=== PATIENT | female | born 1955 | race Caucasian/White ===

== ENCOUNTER 2018-06-14 13:04 | Outpatient (CLI) | payer MEDICAID ==
[~2018-06-14 13:04] MED LIST: FURO-150 PO; IRON; MULT-38 PO; PANT-47 PO; SPIR100T5 PO
== END 2018-06-14 23:59 | disposition home or self-care (01) ==
LOC: RAD 13:04 → NM 23:59
PROVIDERS: ATTEND Surgery
DX: K91.89 Other postprocedural complications and disorders of digestive system (principal); Z90.49 Acquired absence of other specified parts of digestive tract; Z90.710 Acquired absence of both cervix and uterus; Z72.89 Other problems related to lifestyle; Z79.899 Other long term (current) drug therapy
CPT/HCPCS: 78226; A9537

== ENCOUNTER 2018-06-20 01:32 | Inpatient (IN) | payer MEDICAID ==
[~2018-06-20] VITALS: Ht 165.1 cm; Wt 78.0 kg
[2018-06-20 02:18] LABS: BASOPHILS % (AUTO) 0.6 % (0-1); EOSINOPHILS # (AUTO) 0.1 X10'3 (0-0.9); EOSINOPHILS % (AUTO) 2.3 % (0-6); HEMATOCRIT 31.3 % (35.0-45.0); LYMPHOCYTES # (AUTO) 0.5 X10'3 (1.1-4.8); LYMPHOCYTES % (AUTO) 8.4 % (21-51); MEAN CORPUSCULAR HEMOGLOBIN 33.3 PG (27.0-31.0); MEAN CORPUSCULAR HGB CONC 35.2 g/dL (33.0-36.5); MEAN CORPUSCULAR VOLUME 94.9 FL (78-98); MEAN PLATELET VOLUME 7.8 FL (7.4-10.4); MONOCYTES # (AUTO) 1.1 X10'3 (0-0.9); MONOCYTES % (AUTO) 18.2 % (2-12); NEUTROPHILS # (AUTO) 4.3 X10'3 (1.8-7.7); NEUTROPHILS % (AUTO) 70.5 % (42-75); PLATELET COUNT 160 X10'3 (140-440); RED CELL DISTRIBUTION WIDTH 14.6 % (11.5-14.5); WHITE BLOOD COUNT 6.1 X10'3 (4.5-11.0)
[2018-06-20 02:31] LABS: ALANINE AMINOTRANSFERASE 33 U/L (12-78); ALBUMIN 2.6 G/DL (3.4-5.0); ALBUMIN/GLOBULIN RATIO 0.7 (1.1-1.5); ALKALINE PHOSPHATASE 245 IU/L (46-116); ANION GAP 7 (8-16); ASPARTATE AMINO TRANSFERASE 15 U/L (10-37); BILIRUBIN,TOTAL 1.9 MG/DL (0.1-1.0); BLOOD UREA NITROGEN 17 MG/DL (7-18); CALCIUM 8.5 MG/DL (8.5-10.1); CHLORIDE 98 MMOL/L (99-107); CREATININE 0.74 MG/DL (0.40-0.90); GLUCOSE 104 MG/DL (70-104); INR 1.2 INR; POTASSIUM 4.1 MMOL/L (3.5-5.1); SODIUM 131 MMOL/L (135-145); TOTAL CARBON DIOXIDE 26.5 MMOL/L (24-32); TOTAL PROTEIN 6.1 G/DL (6.4-8.2); eGFR 79 ML/MIN
[2018-06-20 02:32] LABS: PARTIAL THROMBOPLASTIN TIME 28 SECONDS (22-32)
[2018-06-20] MEDS ORDERED: potassium Cl 40MEQ/NS 500ml 500 ML IV PRN ×2 (05:50)
[2018-06-20] MEDS ORDERED: HYDROcodone/acetaminophen 5mg/325mg tablet PO PRN (05:50)
[2018-06-20] MEDS ORDERED: magnesium hydroxide 30ml (MOM) UD suspension PO PRN (05:50)
[2018-06-20] MEDS ORDERED: magnesium 2GM in 50ml NS 50 ML IV PRN (05:50)
[2018-06-20] MEDS ORDERED: potassium Cl 20 mEq SR tablet PO PRN ×2 (05:50)
[2018-06-20] MEDS ORDERED: magnesium Cl slow-release 64mg tablet PO PRN (05:50)
[2018-06-20] MEDS ORDERED: ondansetron/PF 4mg/2ml inj IV PRN (05:50)
[2018-06-20] MEDS ORDERED: magnesium 4gm in 100ml NS 100 ML IV PRN (05:50)
[2018-06-20] MEDS ORDERED: acetaminophen 325mg tablet PO PRN ×2 (05:50)
[2018-06-20] MEDS ORDERED: mag hydrox/Alum hydrox/simeth 30ml oral suspension PO PRN (05:50)
[2018-06-20 06:43] LABS: CLARITY,URINE CLEAR (Clear); COLOR,URINE YELLOW (Yellow); GLUCOSE, URINE NEGATIVE (Neg); KETONES,URINE NEGATIVE (Neg); LEUKOCYTE ESTERASE ,URINE NEGATIVE (Neg); NITRITES, URINE NEGATIVE (Neg); OCCULT BLOOD,URINE NEGATIVE (Neg); PROTEIN,URINE NEGATIVE (Neg)
[2018-06-20 06:44] LABS: UA COLLECTION TYPE VOIDED
[2018-06-20] MEDS: K and/or MAG REPLACEMENT MC SCH (08:00)
[2018-06-20] MEDS ORDERED: piperacillin/tazo 4.5gm/100ml 100 ML IV SCH (08:00)
[2018-06-20] MEDS: multivitamins, therapeutics tablet PO SCH (08:01)
[2018-06-20] MEDS: furosemide 20MG tablet PO SCH (08:01)
[2018-06-20] MEDS: pantoprazole 40mg Tablet.DR PO SCH (08:01)
[2018-06-20] MEDS: enoxaparin 40mg/0.4ml syringe SUBCUT SCH (08:01)
[2018-06-20] MEDS: normal saline 1000ml 1,000 ML IV SCH ×2 (08:07→15:47)
[2018-06-20] MEDS: HYDROmorphone inj. 0.5 MG/0.5 ML DISP.SYRIN IV PRN (08:53)
[2018-06-20] MEDS: spironolactone 25 MG tablet PO SCH ×2 (08:53→20:00)
[2018-06-20] MEDS ORDERED: midazolam 2 mg/2 ml injection IV PRN (11:05)
[2018-06-20] MEDS ORDERED: normal saline 1000ml 1,000 ML IV SCH (11:05)
[2018-06-20] MEDS ORDERED: LIDOcaine 1%/PF 5ML 10 MG/ML VIAL SQ ONE (11:05)
[2018-06-20] MEDS ORDERED: fentaNYL/PF 50MCG/1 ML 2ML syringe IV PRN (11:05)
[2018-06-20] MEDS ORDERED: midazolam 2 mg/2 ml injection ONE (11:08)
[2018-06-20] MEDS ORDERED: LIDOcaine 1%/PF 5ML 10 MG/ML VIAL ONE (11:08)
[2018-06-20] MEDS ORDERED: fentaNYL/PF 50MCG/1 ML 2ML syringe ONE ×2 (11:08→11:57)
[2018-06-20 11:30] VITALS: BP 102/53
[2018-06-20 11:41] VITALS: BP 95/46
[2018-06-20 11:46] VITALS: BP 96/49
[2018-06-20 11:51] VITALS: BP 99/57
[2018-06-20 11:59] VITALS: BP 100/52
[2018-06-20 13:58] LABS: BF RBC COUNT 3370 /CU MM; BF WBC COUNT 275 /CU MM (0-1000); BFAPPEAR HAZY; BFCOLOR YELLOW; BFVOLUME 57 ML
[2018-06-20 14:03] LABS: LYMPHOCYTES,BODY FLUID 22 %; NEUTROPHILS,BODY FLUID 41 %
[2018-06-20 14:04] LABS: BF MESOTHELIAL CELLS MODERATE; MONOCYTES,BODY FLUID 37 %
[2018-06-20] MEDS: HYDROmorphone 1 mg/ml syringe IV PRN ×3 (14:29→22:49)
[2018-06-20] MEDS: piperacillin/tazo 3.375gm/50ml 50 ML IV SCH (16:24)
--- NOTE | 2018-06-20 17:47 | NUR ---
ESTEFANI TORRES TO CALL BACK TO RECEIVE REPORT.
--- NOTE | 2018-06-20 18:36 | NUR ---
IPA 344 B, PT WITH STABLE VS AND IS POLEASANT AND COOPERATIVE. DR. EZIO VAUGHN FOR UPDATE ON PT. JUST GIVEN DIALUDID FOR PAIN TO RIGHT ABD/INCISION SITE OF 7 OUT OF 10.
[2018-06-20 19:10] VITALS: BP 110/59
--- NOTE | 2018-06-20 19:10 | NUR ---
PATIENT ADMITTED TO ROOM 344B FROM ER FOR SEPSIS POST LA BUNNY 10 DAYS AGO. PLACED COMFORTABLE IN BED. VITAL SIGNS TAKEN AND RECORDED.
[2018-06-20] MEDS ORDERED: temazepam 15mg capsule PO PRN (21:00)
[2018-06-20] MEDS: lactobacillus rhamnosus 10,000 MMU CELLS/CAPSULE PO SCH (21:15)
[2018-06-21] VITALS: BP 97/55
[2018-06-21] MEDS: HYDROcodone/acetaminophen 10/325mg tab PO PRN ×2 (00:39→16:27)
[2018-06-21] MEDS: piperacillin/tazo 3.375gm/50ml 50 ML IV SCH ×3 (00:52→16:18)
[2018-06-21] MEDS: HYDROmorphone 1 mg/ml syringe IV PRN ×4 (03:24→20:02)
[2018-06-21 05:40] LABS: ALANINE AMINOTRANSFERASE 34 U/L (12-78); ALBUMIN 2.7 G/DL (3.4-5.0); ALBUMIN/GLOBULIN RATIO 0.8 (1.1-1.5); ALKALINE PHOSPHATASE 240 IU/L (46-116); ANION GAP 5 (8-16); ASPARTATE AMINO TRANSFERASE 16 U/L (10-37); BILIRUBIN,TOTAL 3.1 MG/DL (0.1-1.0); BLOOD UREA NITROGEN 10 MG/DL (7-18); BUN/CREATININE RATIO 12.7 (6.6-38.0); CALCIUM 8.5 MG/DL (8.5-10.1); CHLORIDE 98 MMOL/L (99-107); CREATININE 0.79 MG/DL (0.40-0.90); GLUCOSE 90 MG/DL (70-104); MAGNESIUM 1.7 MG/DL (1.5-2.4); PHOSPHORUS 2.9 MG/DL (2.3-4.5); POTASSIUM 3.9 MMOL/L (3.5-5.1); SODIUM 130 MMOL/L (135-145); TOTAL CARBON DIOXIDE 27.2 MMOL/L (24-32); TOTAL PROTEIN 6.2 G/DL (6.4-8.2); eGFR 74 ML/MIN
[2018-06-21 05:45] LABS: BASOPHILS % (AUTO) 0.5 % (0-1); EOSINOPHILS # (AUTO) 0.1 X10'3 (0-0.9); EOSINOPHILS % (AUTO) 1.5 % (0-6); HEMATOCRIT 34.4 % (35.0-45.0); HEMOGLOBIN 11.8 g/dl (12.0-16.0); LYMPHOCYTES % (AUTO) 12.3 % (21-51); MEAN CORPUSCULAR HEMOGLOBIN 33.1 PG (27.0-31.0); MEAN CORPUSCULAR HGB CONC 34.2 g/dL (33.0-36.5); MEAN CORPUSCULAR VOLUME 96.6 FL (78-98); MONOCYTES # (AUTO) 1.3 X10'3 (0-0.9); MONOCYTES % (AUTO) 15.7 % (2-12); NEUTROPHILS # (AUTO) 5.7 X10'3 (1.8-7.7); PLATELET COUNT 194 X10'3 (140-440); RED BLOOD COUNT 3.56 X10'6 (4.20-5.60); RED CELL DISTRIBUTION WIDTH 14.8 % (11.5-14.5); WHITE BLOOD COUNT 8.2 X10'3 (4.5-11.0)
--- NOTE | 2018-06-21 06:39 | NUR ---
Problems reprioritized. Patient report given, questions answered & plan of care reviewed with LENORE TORRES.
[2018-06-21 07:13] VITALS: BP 128/58
[2018-06-21] MEDS: spironolactone 25 MG tablet PO SCH ×2 (07:57→21:04)
[2018-06-21] MEDS: pantoprazole 40mg Tablet.DR PO SCH (07:58)
[2018-06-21] MEDS: multivitamins, therapeutics tablet PO SCH (07:58)
[2018-06-21] MEDS: lactobacillus rhamnosus 10,000 MMU CELLS/CAPSULE PO SCH ×2 (07:58→21:04)
[2018-06-21] MEDS: docusate sod 100mg capsule PO SCH ×2 (07:58→21:04)
[2018-06-21] MEDS: furosemide 20MG tablet PO SCH (07:58)
[2018-06-21] MEDS: K and/or MAG REPLACEMENT MC SCH (08:00)
[2018-06-21] MEDS: enoxaparin 40mg/0.4ml syringe SUBCUT SCH (08:01)
[2018-06-21 12:00] VITALS: BP 113/62
--- NOTE | 2018-06-21 13:54 | NUR ---
PAGER ID: [phone] MESSAGE: [phone] Marlene Velez JUST TO VERIFY... WHAT DIET DID YOU WANT THIS PT ON? SHE IS STILL ON CL [place]. tHANK YOU LENORE [id number]
--- NOTE | 2018-06-21 15:54 | NUR ---
PAGER ID: [phone] MESSAGE: [phone] Marlene GONZALES ASCITES RETURNING, ABD IS LARGE DISTENDED AND WARM TO TOUCH. LENORE TORRES [facility]
--- NOTE | 2018-06-21 19:09 | NUR ---
Pt. in room resting comfortably, no needs at this time. Gave report to Melvi purclel RN.
--- NOTE | 2018-06-21 19:10 | NUR ---
Patient in room KIP 344. I have received report from LENORE TORRES and had the opportunity to ask questions and assume patient care.
[2018-06-21 20:00] VITALS: BP 103/53
[2018-06-22] VITALS (14 sets, daily range): BP systolic 97–123; BP diastolic 50–76
[2018-06-22] MEDS: piperacillin/tazo 3.375gm/50ml 50 ML IV SCH ×4 (00:23→23:36)
[2018-06-22] MEDS: HYDROmorphone 1 mg/ml syringe IV PRN ×5 (00:26→20:49)
[2018-06-22 04:45] LABS: BASOPHILS % (AUTO) 0.3 % (0-1); EOSINOPHILS # (AUTO) 0.1 X10'3 (0-0.9); EOSINOPHILS % (AUTO) 1.5 % (0-6); HEMATOCRIT 29.6 % (35.0-45.0); HEMOGLOBIN 10.3 g/dl (12.0-16.0); LYMPHOCYTES # (AUTO) 0.5 X10'3 (1.1-4.8); LYMPHOCYTES % (AUTO) 7.9 % (21-51); MEAN CORPUSCULAR HEMOGLOBIN 33.5 PG (27.0-31.0); MEAN CORPUSCULAR HGB CONC 34.8 g/dL (33.0-36.5); MEAN CORPUSCULAR VOLUME 96.1 FL (78-98); MEAN PLATELET VOLUME 7.5 FL (7.4-10.4); MONOCYTES # (AUTO) 0.9 X10'3 (0-0.9); MONOCYTES % (AUTO) 14.1 % (2-12); NEUTROPHILS % (AUTO) 76.2 % (42-75); PLATELET COUNT 161 X10'3 (140-440); RED BLOOD COUNT 3.08 X10'6 (4.20-5.60); RED CELL DISTRIBUTION WIDTH 14.8 % (11.5-14.5); WHITE BLOOD COUNT 6.5 X10'3 (4.5-11.0)
[2018-06-22 05:03] LABS: ALANINE AMINOTRANSFERASE 29 U/L (12-78); ALBUMIN 2.4 G/DL (3.4-5.0); ALBUMIN/GLOBULIN RATIO 0.7 (1.1-1.5); ALKALINE PHOSPHATASE 210 IU/L (46-116); ANION GAP 3 (8-16); ASPARTATE AMINO TRANSFERASE 14 U/L (10-37); BILIRUBIN,TOTAL 3.2 MG/DL (0.1-1.0); BLOOD UREA NITROGEN 9 MG/DL (7-18); BUN/CREATININE RATIO 10.2 (6.6-38.0); CALCIUM 8.2 MG/DL (8.5-10.1); CHLORIDE 98 MMOL/L (99-107); CREATININE 0.88 MG/DL (0.40-0.90); GLUCOSE 101 MG/DL (70-104); LIPASE 144 U/L (73-393); MAGNESIUM 1.7 MG/DL (1.5-2.4); PHOSPHORUS 2.6 MG/DL (2.3-4.5); POTASSIUM 3.6 MMOL/L (3.5-5.1); SODIUM 129 MMOL/L (135-145); TOTAL PROTEIN 5.8 G/DL (6.4-8.2); eGFR 65 ML/MIN
--- NOTE | 2018-06-22 06:30 | NUR ---
Problems reprioritized. Patient report given, questions answered & plan of care reviewed with BEN TORRES.
--- NOTE | 2018-06-22 06:30 | NUR ---
Patient in room KIP 344. I have received report from Melvi Ogden RN and had the opportunity to ask questions and assume patient care. Patient resting comfortably at this time. Call light and items of frequent use in reach of patient.
[2018-06-22] MEDS ORDERED: MIDAZolam 5mg/5ml vial ONE (06:34)
[2018-06-22] MEDS ORDERED: diphenhydrAMINE 50 mg/ml inj ONE (06:34)
[2018-06-22] MEDS ORDERED: fentaNYL/PF 50MCG/1 ML 2ML syringe ONE (06:34)
[2018-06-22] MEDS ORDERED: iohexol 300 MG/1 ML 50ml polymer ONE (06:34)
[2018-06-22] MEDS ORDERED: LIDOcaine Viscous 15ml cup ONE (06:34)
[2018-06-22] MEDS ORDERED: glucagon, human recombinant 1mg kit ONE (06:34)
--- NOTE | 2018-06-22 06:47 | NUR ---
Patient to ERCP via wheelchair with x1 staff. Patient alert and oriented and in no apparent distress at this time.
[2018-06-22] MEDS: K and/or MAG REPLACEMENT MC SCH (08:00)
[2018-06-22] MEDS: spironolactone 25 MG tablet PO SCH ×2 (11:17→20:45)
[2018-06-22] MEDS: multivitamins, therapeutics tablet PO SCH (11:18)
[2018-06-22] MEDS: lactobacillus rhamnosus 10,000 MMU CELLS/CAPSULE PO SCH ×2 (11:18→20:45)
[2018-06-22] MEDS: docusate sod 100mg capsule PO SCH ×2 (11:18→20:45)
[2018-06-22] MEDS: pantoprazole 40mg Tablet.DR PO SCH (11:18)
[2018-06-22] MEDS: furosemide 20MG tablet PO SCH (11:18)
--- NOTE | 2018-06-22 18:31 | NUR ---
Problems reprioritized. Patient report given, questions answered & plan of care reviewed with Melvi Ogden RN.
--- NOTE | 2018-06-22 18:35 | NUR ---
Patient in room KIP 344. I have received report from BEN TORRES and had the opportunity to ask questions and assume patient care.
[2018-06-23] VITALS: BP 118/43
[2018-06-23] MEDS: HYDROmorphone 1 mg/ml syringe IV PRN ×4 (01:53→21:52)
[2018-06-23 05:12] LABS: BASOPHILS % (AUTO) 0.2 % (0-1); EOSINOPHILS # (AUTO) 0.1 X10'3 (0-0.9); EOSINOPHILS % (AUTO) 1.2 % (0-6); HEMATOCRIT 27.7 % (35.0-45.0); HEMOGLOBIN 9.6 g/dl (12.0-16.0); LYMPHOCYTES # (AUTO) 0.5 X10'3 (1.1-4.8); LYMPHOCYTES % (AUTO) 7.2 % (21-51); MEAN CORPUSCULAR HEMOGLOBIN 33.6 PG (27.0-31.0); MEAN CORPUSCULAR HGB CONC 34.7 g/dL (33.0-36.5); MEAN CORPUSCULAR VOLUME 96.9 FL (78-98); MEAN PLATELET VOLUME 7.5 FL (7.4-10.4); MONOCYTES # (AUTO) 0.9 X10'3 (0-0.9); MONOCYTES % (AUTO) 13.4 % (2-12); PLATELET COUNT 168 X10'3 (140-440); RED BLOOD COUNT 2.86 X10'6 (4.20-5.60); WHITE BLOOD COUNT 6.4 X10'3 (4.5-11.0)
[2018-06-23 05:30] LABS: ALANINE AMINOTRANSFERASE 27 U/L (12-78); ALBUMIN 2.2 G/DL (3.4-5.0); ALBUMIN/GLOBULIN RATIO 0.7 (1.1-1.5); ALKALINE PHOSPHATASE 190 IU/L (46-116); ANION GAP 8 (8-16); ASPARTATE AMINO TRANSFERASE 13 U/L (10-37); BILIRUBIN,TOTAL 2.3 MG/DL (0.1-1.0); BLOOD UREA NITROGEN 7 MG/DL (7-18); BUN/CREATININE RATIO 8.1 (6.6-38.0); CALCIUM 8.4 MG/DL (8.5-10.1); CHLORIDE 98 MMOL/L (99-107); CREATININE 0.86 MG/DL (0.40-0.90); GLUCOSE 109 MG/DL (70-104); LIPASE 177 U/L (73-393); MAGNESIUM 1.6 MG/DL (1.5-2.4); PHOSPHORUS 2.2 MG/DL (2.3-4.5); POTASSIUM 3.5 MMOL/L (3.5-5.1); SODIUM 131 MMOL/L (135-145); TOTAL CARBON DIOXIDE 25.1 MMOL/L (24-32); TOTAL PROTEIN 5.4 G/DL (6.4-8.2); eGFR 67 ML/MIN
--- NOTE | 2018-06-23 06:25 | NUR ---
Patient in room KIP 344. I have received report from Melvi Ogden RN and had the opportunity to ask questions and assume patient care.
[2018-06-23 07:11] VITALS: BP 101/50
[2018-06-23] MEDS: K and/or MAG REPLACEMENT MC SCH (07:28)
[2018-06-23] MEDS: piperacillin/tazo 3.375gm/50ml 50 ML IV SCH ×2 (07:39→16:40)
[2018-06-23] MEDS: spironolactone 25 MG tablet PO SCH ×2 (07:42→20:33)
[2018-06-23] MEDS: docusate sod 100mg capsule PO SCH ×2 (07:43→20:33)
[2018-06-23] MEDS: pantoprazole 40mg Tablet.DR PO SCH (07:44)
[2018-06-23] MEDS: lactobacillus rhamnosus 10,000 MMU CELLS/CAPSULE PO SCH ×2 (07:44→20:33)
[2018-06-23] MEDS: multivitamins, therapeutics tablet PO SCH (07:44)
[2018-06-23] MEDS: furosemide 20MG tablet PO SCH (07:44)
[2018-06-23 11:38] VITALS: BP_SYST 108; BP_SYST 94; BP_DIAS 50
--- NOTE | 2018-06-23 18:34 | NUR ---
Problems reprioritized. Patient report given, questions answered & plan of care reviewed with Melvi Ogden RN. Patient resting comfortably at this time. Call light and items of frequent use in reach of patient.
--- NOTE | 2018-06-23 18:35 | NUR ---
Patient in room KIP 344. I have received report from BEN TORRES and had the opportunity to ask questions and assume patient care.
[2018-06-23 20:00] VITALS: BP 113/55
[2018-06-24] VITALS: BP 104/53
[2018-06-24] MEDS: piperacillin/tazo 3.375gm/50ml 50 ML IV SCH ×4 (00:13→23:07)
[2018-06-24] MEDS: HYDROmorphone 1 mg/ml syringe IV PRN ×4 (03:48→23:08)
[2018-06-24 04:34] LABS: BASOPHILS % (AUTO) 0.2 % (0-1); EOSINOPHILS # (AUTO) 0.1 X10'3 (0-0.9); EOSINOPHILS % (AUTO) 1.2 % (0-6); HEMATOCRIT 27.8 % (35.0-45.0); HEMOGLOBIN 9.7 g/dl (12.0-16.0); LYMPHOCYTES # (AUTO) 0.4 X10'3 (1.1-4.8); LYMPHOCYTES % (AUTO) 7.4 % (21-51); MEAN CORPUSCULAR HEMOGLOBIN 33.2 PG (27.0-31.0); MEAN CORPUSCULAR HGB CONC 34.9 g/dL (33.0-36.5); MEAN CORPUSCULAR VOLUME 95.2 FL (78-98); MEAN PLATELET VOLUME 7.5 FL (7.4-10.4); MONOCYTES # (AUTO) 0.9 X10'3 (0-0.9); MONOCYTES % (AUTO) 15.6 % (2-12); NEUTROPHILS # (AUTO) 4.2 X10'3 (1.8-7.7); NEUTROPHILS % (AUTO) 75.6 % (42-75); PLATELET COUNT 154 X10'3 (140-440); RED BLOOD COUNT 2.92 X10'6 (4.20-5.60); RED CELL DISTRIBUTION WIDTH 14.5 % (11.5-14.5); WHITE BLOOD COUNT 5.6 X10'3 (4.5-11.0)
[2018-06-24 04:50] LABS: ALANINE AMINOTRANSFERASE 27 U/L (12-78); ALBUMIN 2.2 G/DL (3.4-5.0); ALBUMIN/GLOBULIN RATIO 0.7 (1.1-1.5); ALKALINE PHOSPHATASE 179 IU/L (46-116); ANION GAP 3 (8-16); ASPARTATE AMINO TRANSFERASE 13 U/L (10-37); BILIRUBIN,TOTAL 1.9 MG/DL (0.1-1.0); BLOOD UREA NITROGEN 8 MG/DL (7-18); BUN/CREATININE RATIO 10.1 (6.6-38.0); CALCIUM 8.5 MG/DL (8.5-10.1); CHLORIDE 97 MMOL/L (99-107); CREATININE 0.79 MG/DL (0.40-0.90); GLUCOSE 100 MG/DL (70-104); LIPASE 197 U/L (73-393); MAGNESIUM 1.6 MG/DL (1.5-2.4); PHOSPHORUS 2.2 MG/DL (2.3-4.5); POTASSIUM 3.8 MMOL/L (3.5-5.1); SODIUM 128 MMOL/L (135-145); TOTAL CARBON DIOXIDE 27.7 MMOL/L (24-32); TOTAL PROTEIN 5.4 G/DL (6.4-8.2); eGFR 74 ML/MIN
--- NOTE | 2018-06-24 06:15 | NUR ---
Problems reprioritized. Patient report given, questions answered & plan of care reviewed with BEN TORRES.
--- NOTE | 2018-06-24 06:24 | NUR ---
Patient in room KIP 350. I have received report from Melvi Ogden RN and had the opportunity to ask questions and assume patient care. Patient resting comfortably at this time. Call light and items of frequent use in reach of patient at this time.
[2018-06-24] MEDS: K and/or MAG REPLACEMENT MC SCH (07:07)
[2018-06-24] MEDS: spironolactone 25 MG tablet PO SCH ×2 (07:14→20:01)
[2018-06-24] MEDS: docusate sod 100mg capsule PO SCH ×2 (07:14→20:00)
[2018-06-24] MEDS: lactobacillus rhamnosus 10,000 MMU CELLS/CAPSULE PO SCH ×2 (07:14→20:00)
[2018-06-24] MEDS: furosemide 20MG tablet PO SCH (07:15)
[2018-06-24] MEDS: pantoprazole 40mg Tablet.DR PO SCH (07:15)
[2018-06-24] MEDS: multivitamins, therapeutics tablet PO SCH (07:15)
[2018-06-24 07:41] VITALS: BP 108/64
[2018-06-24 12:00] VITALS: BP 99/54
[2018-06-24] MEDS: HYDROcodone/acetaminophen 10/325mg tab PO PRN (14:54)
[2018-06-24 17:04] LABS: OCCULT BLOOD STOOL POSITIVE (Neg)
--- NOTE | 2018-06-24 18:12 | NUR ---
Received report from BRIAN Rogers. Patient is awake and alert on room air, in no apparent distress. Call light and items of frequent use within reach. Will continue to monitor.
--- NOTE | 2018-06-24 18:16 | NUR ---
Problems reprioritized. Patient report given, questions answered & plan of care reviewed with BRIAN Iyer.
[2018-06-24 20:00] VITALS: BP 102/53
[2018-06-25] VITALS: BP 98/46
[2018-06-25 05:28] LABS: BASOPHILS % (AUTO) 0.3 % (0-1); EOSINOPHILS # (AUTO) 0.1 X10'3 (0-0.9); EOSINOPHILS % (AUTO) 1.1 % (0-6); HEMATOCRIT 31.8 % (35.0-45.0); HEMOGLOBIN 11.1 g/dl (12.0-16.0); LYMPHOCYTES # (AUTO) 0.6 X10'3 (1.1-4.8); LYMPHOCYTES % (AUTO) 9.8 % (21-51); MEAN CORPUSCULAR HEMOGLOBIN 33.4 PG (27.0-31.0); MEAN CORPUSCULAR HGB CONC 34.9 g/dL (33.0-36.5); MEAN CORPUSCULAR VOLUME 95.7 FL (78-98); MEAN PLATELET VOLUME 7.6 FL (7.4-10.4); MONOCYTES % (AUTO) 15.7 % (2-12); NEUTROPHILS # (AUTO) 4.5 X10'3 (1.8-7.7); NEUTROPHILS % (AUTO) 73.1 % (42-75); PLATELET COUNT 181 X10'3 (140-440); RED BLOOD COUNT 3.33 X10'6 (4.20-5.60); RED CELL DISTRIBUTION WIDTH 14.9 % (11.5-14.5); WHITE BLOOD COUNT 6.1 X10'3 (4.5-11.0)
[2018-06-25 05:47] LABS: ALANINE AMINOTRANSFERASE 29 U/L (12-78); ALBUMIN 2.5 G/DL (3.4-5.0); ALBUMIN/GLOBULIN RATIO 0.7 (1.1-1.5); ALKALINE PHOSPHATASE 198 IU/L (46-116); ANION GAP 7 (8-16); ASPARTATE AMINO TRANSFERASE 16 U/L (10-37); BILIRUBIN,TOTAL 1.8 MG/DL (0.1-1.0); BLOOD UREA NITROGEN 8 MG/DL (7-18); BUN/CREATININE RATIO 11.1 (6.6-38.0); CALCIUM 9.3 MG/DL (8.5-10.1); CHLORIDE 97 MMOL/L (99-107); CREATININE 0.72 MG/DL (0.40-0.90); GLUCOSE 92 MG/DL (70-104); LIPASE 210 U/L (73-393); MAGNESIUM 1.8 MG/DL (1.5-2.4); PHOSPHORUS 2.6 MG/DL (2.3-4.5); POTASSIUM 4.3 MMOL/L (3.5-5.1); SODIUM 130 MMOL/L (135-145); TOTAL CARBON DIOXIDE 26.5 MMOL/L (24-32); TOTAL PROTEIN 6.1 G/DL (6.4-8.2); eGFR 82 ML/MIN
--- NOTE | 2018-06-25 06:22 | NUR ---
Patient in room KIP 355. I have received report from Sue TORRES and had the opportunity to ask questions and assume patient care.
--- NOTE | 2018-06-25 06:27 | NUR ---
Problems reprioritized. Patient report given, questions answered & plan of care reviewed with BRIAN Rogers.
--- NOTE | 2018-06-25 06:30 | NUR ---
Patient in room KIP 355. I have received report from BRIAN Iyer and had the opportunity to ask questions and assume patient care.
[2018-06-25 07:22] VITALS: BP 92/40
[2018-06-25] MEDS: K and/or MAG REPLACEMENT MC SCH (08:00)
[2018-06-25] MEDS: furosemide 20MG tablet PO SCH (08:17)
[2018-06-25] MEDS: pantoprazole 40mg Tablet.DR PO SCH (08:18)
[2018-06-25] MEDS: multivitamins, therapeutics tablet PO SCH (08:18)
[2018-06-25] MEDS: docusate sod 100mg capsule PO SCH (08:18)
[2018-06-25] MEDS: spironolactone 25 MG tablet PO SCH (08:18)
[2018-06-25] MEDS: lactobacillus rhamnosus 10,000 MMU CELLS/CAPSULE PO SCH (08:18)
[2018-06-25] MEDS: piperacillin/tazo 3.375gm/50ml 50 ML IV SCH (09:05)
[2018-06-25] MEDS: HYDROmorphone inj. 0.5 MG/0.5 ML DISP.SYRIN IV PRN (09:06)
--- NOTE | 2018-06-25 09:07 | NUR ---
Student Medication Administration: For this medication-pass time frame, all medication were reviewed, dispensed, administered and documented per hospital policy by Jan nursing informatics clinical analyst.
--- NOTE | 2018-06-25 10:32 | NUR ---
Student documentation: I have reviewed and agree with all interventions, assessments performed and documented by Jan, assistant chief nursing officer.
[2018-06-25] MEDS ORDERED: AMOX-422 PO (10:45)
[2018-06-25 10:57] VITALS: BP 97/54
--- NOTE | 2018-06-25 11:59 | NUR ---
Provided education to o Addendum: 06/25/18 at 1200 by Jan KAUFMAN Patient education given regarding low fat diet.
--- NOTE | 2018-06-25 12:01 | NUR ---
Patient report given, questions answered & plan of care reviewed with Sue .
--- NOTE | 2018-06-25 12:03 | NUR ---
Student documentation: I have reviewed and agree with all interventions, assessments performed and documented by Jan, adjunct nursing faculty.
--- NOTE | 2018-06-25 12:45 | NUR ---
Patient discharged home via family and taken from unit via wheelchair with x1 staff. Patient alert, oriented, and in no apparent distress at this time. Patient PIV removed with cannula intact and tele monitor removed. Patient took all belongings with her including her new medication that was delivered with [facility]. Patient stated an understanding of all discharge instructions and was given time for questions and answers. Patient plans to follow up with PCP.
== END 2018-06-25 12:40 | disposition home or self-care (01) | DRG 721 ==
LOC: ER 01:32 → SUR 3N 19:28 → CMPBEDREQ 22:39 → SUR 3N 06-23 20:01
PROVIDERS: ADMIT Family Medicine; ATTEND Hospitalist
PROC: 0W9G3ZZ Drainage of Peritoneal Cavity, Percutaneous Approach (ICD-10-PCS; principal; 2018-06-20)
PROC: 0FPB8DZ Removal of Intraluminal Device from Hepatobiliary Duct, Via Natural or Artificial Opening Endoscopic (ICD-10-PCS; 2018-06-22)
PROC: 0F778DZ Dilation of Common Hepatic Duct with Intraluminal Device, Via Natural or Artificial Opening Endoscopic (ICD-10-PCS; 2018-06-22)
DX: T81.40XA Infection following a procedure, unspecified, initial encounter (principal); E43 Unspecified severe protein-calorie malnutrition; A41.9 Sepsis, unspecified organism; I85.00 Esophageal varices without bleeding; E87.1 Hypo-osmolality and hyponatremia; K70.31 Alcoholic cirrhosis of liver with ascites; D64.9 Anemia, unspecified; L02.91 Cutaneous abscess, unspecified; R01.1 Cardiac murmur, unspecified; Y83.8 Other surgical procedures as the cause of abnormal reaction of the patient, or of later complication, without mention of misadventure at the time of the procedure; K57.90 Diverticulosis of intestine, part unspecified, without perforation or abscess without bleeding; Z68.28 Body mass index [BMI] 28.0-28.9, adult; Z90.49 Acquired absence of other specified parts of digestive tract; Z90.710 Acquired absence of both cervix and uterus; Y92.89 Other specified places as the place of occurrence of the external cause
CPT/HCPCS: 36415; 43276; 49083; 71045; 74177; 80053; 81003; 82247; 82272; 83605; 83690; 83735; 84100; 84145; 85025; 85610; 85730; 87040; 87070; 89051; 96365; 96366; 96372; 96375; 99152; 99153; 99285; A4620; G0378; J1170; J1200; J1610; J1650; J2001; J2250; J2543; J3010; J7030; Q9967

== ENCOUNTER 2018-06-28 17:18 | Emergency (ER) | payer MEDICAID ==
[~2018-06-28] VITALS: Ht 165.1 cm; Wt 72.3 kg
[~2018-06-28 17:18] MED LIST changes: +AMOX-422 PO
[2018-06-28] MEDS ORDERED: ketorolac tromethamine 15mg/ml inj. IV ONE (18:00)
[2018-06-28] MEDS ORDERED: normal saline 1000ML IV soln IVB ONE (18:00)
[2018-06-28] MEDS ORDERED: iohexol 300mg/ml 100ml inj. ONE (18:05)
[2018-06-28 18:34] LABS: BASOPHILS % (AUTO) 0.6 % (0-1); EOSINOPHILS # (AUTO) 0.1 X10'3 (0-0.9); EOSINOPHILS % (AUTO) 1.2 % (0-6); HEMATOCRIT 34.3 % (35.0-45.0); HEMOGLOBIN 11.7 g/dl (12.0-16.0); LYMPHOCYTES # (AUTO) 0.6 X10'3 (1.1-4.8); LYMPHOCYTES % (AUTO) 9.6 % (21-51); MEAN CORPUSCULAR HEMOGLOBIN 32.3 PG (27.0-31.0); MEAN CORPUSCULAR HGB CONC 34.1 g/dL (33.0-36.5); MEAN CORPUSCULAR VOLUME 94.9 FL (78-98); MEAN PLATELET VOLUME 7.8 FL (7.4-10.4); MONOCYTES # (AUTO) 1.1 X10'3 (0-0.9); MONOCYTES % (AUTO) 17.4 % (2-12); NEUTROPHILS # (AUTO) 4.7 X10'3 (1.8-7.7); NEUTROPHILS % (AUTO) 71.2 % (42-75); PLATELET COUNT 248 X10'3 (140-440); RED BLOOD COUNT 3.61 X10'6 (4.20-5.60); RED CELL DISTRIBUTION WIDTH 14.7 % (11.5-14.5); WHITE BLOOD COUNT 6.6 X10'3 (4.5-11.0)
[2018-06-28 18:36] LABS: CLARITY,URINE CLEAR (Clear); COLOR,URINE YELLOW (Yellow); GLUCOSE, URINE NEGATIVE (Neg); KETONES,URINE NEGATIVE (Neg); LEUKOCYTE ESTERASE ,URINE NEGATIVE (Neg); NITRITES, URINE NEGATIVE (Neg); OCCULT BLOOD,URINE NEGATIVE (Neg); PROTEIN,URINE NEGATIVE (Neg); UROBILINOGEN,URINE 0.2 E.U/dL (0.2-1.0)
[2018-06-28 18:38] LABS: UA COLLECTION TYPE CLN CATCH MIDSTREAM
[2018-06-28 18:49] LABS: ALANINE AMINOTRANSFERASE 35 U/L (12-78); ALBUMIN 2.7 G/DL (3.4-5.0); ALBUMIN/GLOBULIN RATIO 0.7 (1.1-1.5); ALKALINE PHOSPHATASE 202 IU/L (46-116); ANION GAP 7 (8-16); ASPARTATE AMINO TRANSFERASE 21 U/L (10-37); BILIRUBIN,TOTAL 1.3 MG/DL (0.1-1.0); BLOOD UREA NITROGEN 11 MG/DL (7-18); BUN/CREATININE RATIO 12.8 (6.6-38.0); CALCIUM 9.2 MG/DL (8.5-10.1); CHLORIDE 97 MMOL/L (99-107); CREATININE 0.86 MG/DL (0.40-0.90); GLUCOSE 89 MG/DL (70-104); LIPASE 343 U/L (73-393); SODIUM 131 MMOL/L (135-145); TOTAL CARBON DIOXIDE 26.7 MMOL/L (24-32); TOTAL PROTEIN 6.5 G/DL (6.4-8.2); eGFR 67 ML/MIN
--- NOTE | 2018-06-28 19:56 | NUR ---
Vernon edmondson in ED - 06/28/18 at 1957 by ANDRESSA PT SITTING AT END OF [facility] [place], PULLING AT [employer] LINES. ASSITED BACK INTO [facility] AND REORIENTED.
--- NOTE | 2018-06-28 19:58 | NUR ---
PT RESTING QUIETLY, AWAITING DISPO.
--- NOTE | 2018-06-28 20:45 | NUR ---
PT COMFORTABLE, STILL AWAITING DISPO.
[2018-06-28] MEDS ORDERED: morphine 4 MG/ML inj SYRINge IM ONE (20:50)
[2018-06-28 21:47] VITALS: BP 96/50
== END 2018-06-28 21:49 | disposition home or self-care (01) ==
LOC: ER 17:18
DX: R16.0 Hepatomegaly, not elsewhere classified (principal); Z79.2 Long term (current) use of antibiotics; Z79.899 Other long term (current) drug therapy; Z98.890 Other specified postprocedural states
CPT/HCPCS: 36415; 74177; 80053; 81003; 83690; 85025; 93005; 96372; 96374; 99284; J1885; J2270; J7030; Q9967

== ENCOUNTER 2018-10-08 06:23 | Day surgery (SDC) | payer MEDICAID ==
[~2018-10-08] VITALS: Ht 165.1 cm; Wt 71.8 kg
[~2018-10-08 06:23] MED LIST changes: -AMOX-422 PO; -IRON
[2018-10-08 06:30] VITALS: BP 104/69
[2018-10-08] MEDS ORDERED: fentaNYL/PF 50MCG/1 ML 2ML syringe ONE (06:51)
[2018-10-08] MEDS ORDERED: LIDOcaine Viscous 15ml cup ONE (06:52)
[2018-10-08] MEDS ORDERED: MIDAZolam 5mg/5ml vial ONE (06:52)
[2018-10-08 07:50] VITALS: BP 97/60
[2018-10-08 08:00] VITALS: BP 101/62
[2018-10-08 08:10] VITALS: BP 107/63
[2018-10-08 08:20] VITALS: BP 103/58
== END 2018-10-08 08:40 | disposition home or self-care (01) ==
LOC: GI LAB 06:23
PROVIDERS: ATTEND Internal Medicine Gastroenterology
DX: I85.00 Esophageal varices without bleeding (principal); K22.8 Other specified diseases of esophagus; K76.6 Portal hypertension; K29.80 Duodenitis without bleeding; K31.89 Other diseases of stomach and duodenum; K29.70 Gastritis, unspecified, without bleeding
CPT/HCPCS: 43239; 99152; J2250; J3010; J7040; A4620

== ENCOUNTER 2019-05-06 11:56 | Day surgery (SDC) | payer MEDICAID ==
[~2019-05-06] VITALS: Ht 166.4 cm; Wt 75.0 kg
[2019-05-06 12:10] VITALS: BP 134/70
[2019-05-06] MEDS ORDERED: fentaNYL/PF 50MCG/1 ML 2ML syringe ONE (12:41)
[2019-05-06] MEDS ORDERED: LIDOcaine Viscous 15ml cup ONE (12:42)
[2019-05-06] MEDS ORDERED: MIDAZolam 5mg/5ml vial ONE (12:42)
[2019-05-06] MEDS ORDERED: SPIR50TA5 PO (12:46)
[2019-05-06 13:11] VITALS: BP 124/70
[2019-05-06 13:21] VITALS: BP 111/66
[2019-05-06 13:31] VITALS: BP 122/63
[2019-05-06 13:41] VITALS: BP 113/60
== END 2019-05-06 14:00 | disposition home or self-care (01) ==
LOC: GI LAB 11:56
PROVIDERS: ATTEND Internal Medicine Gastroenterology
DX: K92.1 Melena (principal); K22.8 Other specified diseases of esophagus; I85.00 Esophageal varices without bleeding; K31.89 Other diseases of stomach and duodenum; K76.6 Portal hypertension; D64.9 Anemia, unspecified
CPT/HCPCS: 43235; 99152; J2250; J3010; J7040; A4620

== ENCOUNTER 2019-11-25 08:31 | Day surgery (SDC) | payer MEDICARE, MEDICAID ==
[~2019-11-25] VITALS: Ht 165.1 cm; Wt 70.0 kg
[~2019-11-25 08:31] MED LIST changes: -SPIR100T5 PO; +SPIR50TA5 PO
[2019-11-25 09:15] VITALS: BP 110/70
[2019-11-25] MEDS ORDERED: DICL100G15 TOP (09:15)
[2019-11-25] MEDS ORDERED: FERR-116 PO (09:15)
[2019-11-25] MEDS ORDERED: FURO20TA4 PO (09:15)
[2019-11-25 09:17] VITALS: BP 110/70
[2019-11-25 09:50] VITALS: BP 121/68
[2019-11-25 10:00] VITALS: BP 114/65
[2019-11-25 10:40] VITALS: BP 97/60
== END 2019-11-25 10:40 | disposition home or self-care (01) ==
LOC: SSTAY O 08:31
PROVIDERS: ATTEND Radiology Vascular & Interventional Radiology
DX: J90 Pleural effusion, not elsewhere classified (principal); E78.5 Hyperlipidemia, unspecified; E87.1 Hypo-osmolality and hyponatremia; E80.6 Other disorders of bilirubin metabolism; K70.31 Alcoholic cirrhosis of liver with ascites; D64.9 Anemia, unspecified; Z90.710 Acquired absence of both cervix and uterus; Z98.890 Other specified postprocedural states; Z79.899 Other long term (current) drug therapy
CPT/HCPCS: 32555; 71045

== ENCOUNTER 2019-12-10 08:41 | Day surgery (SDC) | payer MEDICARE, MEDICAID ==
[~2019-12-10] VITALS: Ht 165.1 cm; Wt 68.5 kg
[~2019-12-10 08:41] MED LIST changes: +DICL100G15 TOP; +FERR-116 PO; -FURO-150 PO; +FURO20TA4 PO
[2019-12-10 09:01] VITALS: BP 117/69
[2019-12-10] MEDS ORDERED: albumin 25% 100mL bottle x 1 IV PRN (09:05)
[2019-12-10 10:00] VITALS: BP 117/69
[2019-12-10 10:10] VITALS: BP 101/60
== END 2019-12-10 10:30 | disposition home or self-care (01) ==
LOC: SSTAY O 08:41
PROVIDERS: ATTEND Radiology Vascular & Interventional Radiology
DX: J90 Pleural effusion, not elsewhere classified (principal); D64.9 Anemia, unspecified; E87.1 Hypo-osmolality and hyponatremia; E80.6 Other disorders of bilirubin metabolism; E78.5 Hyperlipidemia, unspecified; K70.30 Alcoholic cirrhosis of liver without ascites; Z90.49 Acquired absence of other specified parts of digestive tract; Z90.710 Acquired absence of both cervix and uterus; Z79.899 Other long term (current) drug therapy
CPT/HCPCS: 32555; 71045

== ENCOUNTER 2019-12-19 08:38 | Day surgery (SDC) | payer MEDICARE, MEDICAID ==
[~2019-12-19] VITALS: Ht 165.1 cm; Wt 70.9 kg
[2019-12-19 08:30] VITALS: BP 106/67
[2019-12-19 09:00] VITALS: BP 106/67
[2019-12-19] MEDS ORDERED: POTA20TA19 PO (09:04)
[2019-12-19] MEDS ORDERED: normal saline 1000ml 1,000 ML IV PRN (09:05)
[2019-12-19] MEDS ORDERED: albumin 25% 100mL bottle x 1 IV PRN (09:05)
[2019-12-19 09:25] VITALS: BP 128/71
[2019-12-19 09:45] VITALS: BP 129/58
[2019-12-19 10:00] VITALS: BP 102/73
== END 2019-12-19 10:25 | disposition home or self-care (01) ==
LOC: SSTAY O 08:38
PROVIDERS: ATTEND Radiology Vascular & Interventional Radiology
DX: J90 Pleural effusion, not elsewhere classified (principal); E80.6 Other disorders of bilirubin metabolism; E78.5 Hyperlipidemia, unspecified; E87.1 Hypo-osmolality and hyponatremia; D64.9 Anemia, unspecified; K70.31 Alcoholic cirrhosis of liver with ascites; Z98.890 Other specified postprocedural states; Z90.710 Acquired absence of both cervix and uterus; Z79.899 Other long term (current) drug therapy
CPT/HCPCS: 32555; 36415; 71045

== ENCOUNTER 2019-12-31 08:45 | Day surgery (SDC) | payer MEDICARE, MEDICAID ==
[2019-12-31] VITALS (7 sets, daily range): BP systolic 102–115; BP diastolic 61–68
[~2019-12-31] VITALS: Ht 165.1 cm; Wt 67.3 kg
[~2019-12-31 08:45] MED LIST changes: -MULT-38 PO; +POTA20TA19 PO
[2019-12-31] MEDS ORDERED: albumin 25% 100mL bottle x 1 IV PRN (09:15)
== END 2019-12-31 10:40 | disposition home or self-care (01) ==
LOC: SSTAY O 08:45
PROVIDERS: ATTEND Radiology Vascular & Interventional Radiology
DX: J90 Pleural effusion, not elsewhere classified (principal); K74.60 Unspecified cirrhosis of liver; E80.6 Other disorders of bilirubin metabolism; E78.5 Hyperlipidemia, unspecified; E87.1 Hypo-osmolality and hyponatremia; D64.9 Anemia, unspecified; Z90.710 Acquired absence of both cervix and uterus; Z98.890 Other specified postprocedural states; Z72.89 Other problems related to lifestyle
CPT/HCPCS: 32555; 71045

== ENCOUNTER 2020-01-13 08:27 | Day surgery (SDC) | payer MEDICARE, MEDICAID ==
[~2020-01-13] VITALS: Ht 165.1 cm; Wt 68.5 kg
[2020-01-13 07:36] VITALS: BP 122/74
[2020-01-13 09:20] VITALS: BP 122/74
[2020-01-13 09:34] VITALS: BP 145/77
[2020-01-13 10:57] VITALS: BP 125/59
== END 2020-01-13 11:08 | disposition home or self-care (01) ==
LOC: SSTAY O 08:27
PROVIDERS: ATTEND Radiology Vascular & Interventional Radiology
DX: J90 Pleural effusion, not elsewhere classified (principal); K70.31 Alcoholic cirrhosis of liver with ascites; E80.6 Other disorders of bilirubin metabolism; E78.5 Hyperlipidemia, unspecified; E87.1 Hypo-osmolality and hyponatremia; D64.9 Anemia, unspecified; Z90.710 Acquired absence of both cervix and uterus; Z98.890 Other specified postprocedural states; Z79.899 Other long term (current) drug therapy
CPT/HCPCS: 32555; 71045

== ENCOUNTER 2020-01-21 08:37 | Day surgery (SDC) | payer MEDICARE, MEDICAID ==
[~2020-01-21] VITALS: Ht 165.1 cm; Wt 66.6 kg
[2020-01-21] MEDS ORDERED: albumin 25% 100mL bottle x 1 IV PRN (08:55)
[2020-01-21 08:56] VITALS: BP 103/68
[2020-01-21] MEDS ORDERED: MULT-1074 PO (09:06)
[2020-01-21 09:55] VITALS: BP 103/68
[2020-01-21 10:00] VITALS: BP 114/66
[2020-01-21 10:15] VITALS: BP 115/73
== END 2020-01-21 10:30 | disposition home or self-care (01) ==
LOC: SSTAY O 08:37
PROVIDERS: ATTEND Radiology Diagnostic Radiology
DX: J90 Pleural effusion, not elsewhere classified (principal); Z20.828 Contact with and (suspected) exposure to other viral communicable diseases; E78.5 Hyperlipidemia, unspecified; K70.30 Alcoholic cirrhosis of liver without ascites; E80.6 Other disorders of bilirubin metabolism; E87.1 Hypo-osmolality and hyponatremia; D64.9 Anemia, unspecified; Z98.890 Other specified postprocedural states; Z90.710 Acquired absence of both cervix and uterus; Z79.899 Other long term (current) drug therapy
CPT/HCPCS: 32555; 36415; 71045; 87635

== ENCOUNTER 2020-01-29 08:00 | Day surgery (SDC) | payer MEDICARE, MEDICAID ==
[~2020-01-29] VITALS: Ht 165.1 cm; Wt 69.9 kg
[~2020-01-29 08:00] MED LIST changes: -DICL100G15 TOP; +MULT-1074 PO
[2020-01-29 08:23] VITALS: BP 122/77
[2020-01-29] MEDS ORDERED: HYDR-4383 PO (08:36)
[2020-01-29 09:30] VITALS: BP 122/77
[2020-01-29 10:57] VITALS: BP 106/61
== END 2020-01-29 11:05 | disposition home or self-care (01) ==
LOC: SSTAY O 08:00
PROVIDERS: ATTEND Radiology Vascular & Interventional Radiology
DX: J90 Pleural effusion, not elsewhere classified (principal); K70.31 Alcoholic cirrhosis of liver with ascites; E80.6 Other disorders of bilirubin metabolism; E78.5 Hyperlipidemia, unspecified; E87.1 Hypo-osmolality and hyponatremia; D64.9 Anemia, unspecified; Z90.710 Acquired absence of both cervix and uterus; Z98.890 Other specified postprocedural states; Z79.899 Other long term (current) drug therapy
CPT/HCPCS: 32555; 71045

== ENCOUNTER 2020-02-05 08:32 | Day surgery (SDC) | payer MEDICARE, MEDICAID ==
[~2020-02-05] VITALS: Ht 165.1 cm; Wt 67.5 kg
[~2020-02-05 08:32] MED LIST changes: +HYDR-4383 PO
[2020-02-05] MEDS ORDERED: albumin 25% 100mL bottle x 1 IV PRN (08:50)
[2020-02-05 08:59] VITALS: BP 113/76
[2020-02-05 09:45] VITALS: BP 132/71
[2020-02-05 10:00] VITALS: BP 128/78
[2020-02-05 10:15] VITALS: BP 113/70
[2020-02-05 10:45] VITALS: BP 114/70
== END 2020-02-05 11:15 | disposition home or self-care (01) ==
LOC: SSTAY O 08:32
PROVIDERS: ATTEND Radiology Vascular & Interventional Radiology
DX: J90 Pleural effusion, not elsewhere classified (principal); K70.31 Alcoholic cirrhosis of liver with ascites; E80.6 Other disorders of bilirubin metabolism; E78.5 Hyperlipidemia, unspecified; E87.1 Hypo-osmolality and hyponatremia; D64.9 Anemia, unspecified; Z90.710 Acquired absence of both cervix and uterus; Z98.890 Other specified postprocedural states; Z90.49 Acquired absence of other specified parts of digestive tract; Z79.899 Other long term (current) drug therapy; Z82.49 Family history of ischemic heart disease and other diseases of the circulatory system
CPT/HCPCS: 32555; 71045

== ENCOUNTER 2020-02-10 08:58 | Day surgery (SDC) | payer MEDICARE, MEDICAID ==
[~2020-02-10] VITALS: Ht 165.1 cm; Wt 65.7 kg
[2020-02-10 09:16] VITALS: BP 119/60
[2020-02-10] MEDS ORDERED: albumin 25% 100mL bottle x 1 IV PRN (09:20)
[2020-02-10 10:34] VITALS: BP 105/63
[2020-02-10 10:49] VITALS: BP 105/63
[2020-02-10 11:00] VITALS: BP 126/81
== END 2020-02-10 11:10 | disposition home or self-care (01) ==
LOC: SSTAY O 08:58
PROVIDERS: ATTEND Radiology Diagnostic Radiology
DX: J90 Pleural effusion, not elsewhere classified (principal); K70.31 Alcoholic cirrhosis of liver with ascites; E80.6 Other disorders of bilirubin metabolism; E78.5 Hyperlipidemia, unspecified; E87.1 Hypo-osmolality and hyponatremia; D64.9 Anemia, unspecified; Z90.710 Acquired absence of both cervix and uterus; Z98.890 Other specified postprocedural states; Z79.899 Other long term (current) drug therapy; Z82.49 Family history of ischemic heart disease and other diseases of the circulatory system
CPT/HCPCS: 32555; 36415; 71045

== ENCOUNTER 2020-02-25 08:00 | Day surgery (SDC) | payer MEDICARE, MEDICAID ==
[2020-02-25] VITALS (7 sets, daily range): BP systolic 102–122; BP diastolic 33–72
[~2020-02-25] VITALS: Ht 165.1 cm; Wt 67.6 kg
[2020-02-25] MEDS ORDERED: albumin 25% 100mL bottle x 1 IV PRN (08:35)
== END 2020-02-25 10:10 | disposition home or self-care (01) ==
LOC: SSTAY O 08:00
PROVIDERS: ATTEND Radiology Vascular & Interventional Radiology
DX: J90 Pleural effusion, not elsewhere classified (principal); E80.6 Other disorders of bilirubin metabolism; E78.5 Hyperlipidemia, unspecified; E87.1 Hypo-osmolality and hyponatremia; K70.31 Alcoholic cirrhosis of liver with ascites; D64.9 Anemia, unspecified; Z90.710 Acquired absence of both cervix and uterus; Z98.890 Other specified postprocedural states; Z79.899 Other long term (current) drug therapy; Z82.49 Family history of ischemic heart disease and other diseases of the circulatory system
CPT/HCPCS: 32555; 71045

== ENCOUNTER 2020-03-03 09:10 | Day surgery (SDC) | payer MEDICARE, MEDICAID ==
[~2020-03-03] VITALS: Ht 165.1 cm; Wt 67.3 kg
[2020-03-03 09:30] VITALS: BP 120/59
[2020-03-03] MEDS ORDERED: albumin 25% 100mL bottle x 1 IV PRN (09:30)
[2020-03-03 09:43] VITALS: BP 114/63
[2020-03-03 09:55] VITALS: BP 117/60
[2020-03-03 10:09] VITALS: BP 108/62
[2020-03-03 10:15] VITALS: BP 106/62
== END 2020-03-03 10:25 | disposition home or self-care (01) ==
LOC: SSTAY O 09:10
PROVIDERS: ATTEND Radiology Vascular & Interventional Radiology
DX: J90 Pleural effusion, not elsewhere classified (principal); K70.31 Alcoholic cirrhosis of liver with ascites; E80.6 Other disorders of bilirubin metabolism; E78.5 Hyperlipidemia, unspecified; E87.1 Hypo-osmolality and hyponatremia; D64.9 Anemia, unspecified; Z98.890 Other specified postprocedural states; Z90.710 Acquired absence of both cervix and uterus; Z79.899 Other long term (current) drug therapy; Z82.49 Family history of ischemic heart disease and other diseases of the circulatory system
CPT/HCPCS: 32555; 71045

== ENCOUNTER 2020-03-10 08:24 | Day surgery (SDC) | payer MEDICARE, MEDICAID ==
[~2020-03-10] VITALS: Ht 166.4 cm; Wt 68.2 kg
[2020-03-10 08:48] VITALS: BP 122/72
[2020-03-10] MEDS ORDERED: albumin 25% 100mL bottle x 1 IV PRN (08:50)
[2020-03-10 10:00] VITALS: BP 122/72
[2020-03-10 10:01] VITALS: BP 101/60
[2020-03-10 10:15] VITALS: BP 96/57
[2020-03-10 10:39] VITALS: BP 98/55
[2020-03-10 10:44] VITALS: BP 101/62
== END 2020-03-10 10:50 | disposition home or self-care (01) ==
LOC: SSTAY O 08:24
PROVIDERS: ATTEND Radiology Diagnostic Radiology
DX: J90 Pleural effusion, not elsewhere classified (principal); Z20.828 Contact with and (suspected) exposure to other viral communicable diseases; E80.6 Other disorders of bilirubin metabolism; E78.5 Hyperlipidemia, unspecified; E87.1 Hypo-osmolality and hyponatremia; D64.9 Anemia, unspecified; K74.60 Unspecified cirrhosis of liver; Z90.710 Acquired absence of both cervix and uterus; Z98.890 Other specified postprocedural states; Z79.899 Other long term (current) drug therapy; Z82.49 Family history of ischemic heart disease and other diseases of the circulatory system
CPT/HCPCS: 32555; 36415; 71045; 87635

== ENCOUNTER 2020-03-17 08:09 | Day surgery (SDC) | payer MEDICARE, MEDICAID ==
[~2020-03-17] VITALS: Ht 167.6 cm; Wt 67.7 kg
[2020-03-17] MEDS ORDERED: albumin 25% 100mL bottle x 1 IV PRN (08:35)
[2020-03-17 10:00] VITALS: BP 114/69
[2020-03-17 10:35] VITALS: BP 110/70
[2020-03-17 12:52] VITALS: BP 122/71
== END 2020-03-17 10:35 | disposition home or self-care (01) ==
LOC: SSTAY O 08:09
PROVIDERS: ATTEND Radiology Vascular & Interventional Radiology
DX: J90 Pleural effusion, not elsewhere classified (principal); K70.31 Alcoholic cirrhosis of liver with ascites; E80.6 Other disorders of bilirubin metabolism; E78.5 Hyperlipidemia, unspecified; E87.1 Hypo-osmolality and hyponatremia; D64.9 Anemia, unspecified; Z90.710 Acquired absence of both cervix and uterus; Z98.890 Other specified postprocedural states; Z79.899 Other long term (current) drug therapy; Z82.49 Family history of ischemic heart disease and other diseases of the circulatory system
CPT/HCPCS: 32555; 71045

== ENCOUNTER 2020-03-24 08:08 | Day surgery (SDC) | payer MEDICARE, MEDICAID ==
[~2020-03-24] VITALS: Ht 165.1 cm; Wt 68.4 kg
[2020-03-24] VITALS (10 sets, daily range): BP systolic 105–144; BP diastolic 60–87
[2020-03-24] MEDS ORDERED: albumin 25% 100mL bottle x 1 IV PRN (08:35)
[2020-03-24] MEDS ORDERED: normal saline 1000ml 1,000 ML IV PRN (08:35)
== END 2020-03-24 10:35 | disposition home or self-care (01) ==
LOC: SSTAY O 08:08
PROVIDERS: ATTEND Radiology Diagnostic Radiology
DX: J90 Pleural effusion, not elsewhere classified (principal); K70.31 Alcoholic cirrhosis of liver with ascites; E80.6 Other disorders of bilirubin metabolism; E78.5 Hyperlipidemia, unspecified; E87.1 Hypo-osmolality and hyponatremia; D64.9 Anemia, unspecified; Z90.710 Acquired absence of both cervix and uterus; Z98.890 Other specified postprocedural states; Z79.899 Other long term (current) drug therapy; Z82.49 Family history of ischemic heart disease and other diseases of the circulatory system
CPT/HCPCS: 32555; 71045

== ENCOUNTER 2020-03-31 07:56 | Day surgery (SDC) | payer MEDICARE, MEDICAID ==
[~2020-03-31] VITALS: Ht 165.1 cm; Wt 69.3 kg
[2020-03-31] MEDS ORDERED: albumin 25% 100mL bottle x 1 IV PRN (08:15)
[2020-03-31 09:00] VITALS: BP 118/68
[2020-03-31 09:06] VITALS: BP 104/60
[2020-03-31 09:15] VITALS: BP 109/72
[2020-03-31 09:30] VITALS: BP 106/72
[2020-03-31 09:45] VITALS: BP 103/63
[2020-03-31 10:00] VITALS: BP 113/73
== END 2020-03-31 10:15 | disposition home or self-care (01) ==
LOC: SSTAY O 07:56
PROVIDERS: ATTEND Radiology Vascular & Interventional Radiology
DX: J90 Pleural effusion, not elsewhere classified (principal); K70.31 Alcoholic cirrhosis of liver with ascites; E80.6 Other disorders of bilirubin metabolism; E78.5 Hyperlipidemia, unspecified; E87.1 Hypo-osmolality and hyponatremia; D64.9 Anemia, unspecified; Z90.710 Acquired absence of both cervix and uterus; Z98.890 Other specified postprocedural states; Z79.899 Other long term (current) drug therapy; Z82.49 Family history of ischemic heart disease and other diseases of the circulatory system
CPT/HCPCS: 32555; 71045

== ENCOUNTER 2020-04-06 07:51 | Day surgery (SDC) | payer MEDICARE, MEDICAID ==
[~2020-04-06] VITALS: Ht 165.1 cm; Wt 69.5 kg
[2020-04-06] MEDS ORDERED: albumin 25% 100mL bottle x 1 IV PRN (08:20)
[2020-04-06 08:26] VITALS: BP 119/67
[2020-04-06 09:43] VITALS: BP 107/73
[2020-04-06 10:00] VITALS: BP 108/61
[2020-04-06 11:24] VITALS: BP 110/59
== END 2020-04-06 11:40 | disposition home or self-care (01) ==
LOC: SSTAY O 07:51
PROVIDERS: ATTEND Radiology Vascular & Interventional Radiology
DX: J90 Pleural effusion, not elsewhere classified (principal); K70.31 Alcoholic cirrhosis of liver with ascites; E80.6 Other disorders of bilirubin metabolism; E78.5 Hyperlipidemia, unspecified; E87.1 Hypo-osmolality and hyponatremia; D64.9 Anemia, unspecified; Z98.890 Other specified postprocedural states; Z90.710 Acquired absence of both cervix and uterus; Z79.899 Other long term (current) drug therapy; Z82.49 Family history of ischemic heart disease and other diseases of the circulatory system
CPT/HCPCS: 32555; 71045

== ENCOUNTER 2020-04-13 07:53 | Day surgery (SDC) | payer MEDICARE, MEDICAID ==
[~2020-04-13] VITALS: Ht 165.1 cm; Wt 67.9 kg
[2020-04-13] VITALS (8 sets, daily range): BP systolic 100–115; BP diastolic 55–70
[2020-04-13] MEDS ORDERED: albumin 25% 100mL bottle x 1 IV PRN (08:25)
== END 2020-04-13 10:45 | disposition home or self-care (01) ==
LOC: SSTAY O 07:53
PROVIDERS: ATTEND Radiology Diagnostic Radiology
DX: J90 Pleural effusion, not elsewhere classified (principal); K70.30 Alcoholic cirrhosis of liver without ascites; E78.5 Hyperlipidemia, unspecified; D64.9 Anemia, unspecified; Z98.890 Other specified postprocedural states; Z90.710 Acquired absence of both cervix and uterus; Z79.899 Other long term (current) drug therapy; Z82.49 Family history of ischemic heart disease and other diseases of the circulatory system
CPT/HCPCS: 32555; 71045; P9047

== ENCOUNTER 2020-04-21 07:55 | Day surgery (SDC) | payer MEDICARE, MEDICAID ==
[~2020-04-21] VITALS: Ht 165.1 cm; Wt 67.2 kg
[2020-04-21] VITALS (11 sets, daily range): BP systolic 101–128; BP diastolic 54–78
[2020-04-21] MEDS ORDERED: albumin 25% 100mL bottle x 1 IV PRN (08:25)
== END 2020-04-21 10:30 | disposition home or self-care (01) ==
LOC: SSTAY O 07:55
PROVIDERS: ATTEND Radiology Diagnostic Radiology
DX: J90 Pleural effusion, not elsewhere classified (principal); K70.31 Alcoholic cirrhosis of liver with ascites; E80.6 Other disorders of bilirubin metabolism; E78.5 Hyperlipidemia, unspecified; E87.1 Hypo-osmolality and hyponatremia; D64.9 Anemia, unspecified; Z90.710 Acquired absence of both cervix and uterus; Z98.890 Other specified postprocedural states; Z79.899 Other long term (current) drug therapy; Z82.49 Family history of ischemic heart disease and other diseases of the circulatory system
CPT/HCPCS: 32555; 71045

== ENCOUNTER 2020-04-28 07:28 | Day surgery (SDC) | payer MEDICARE, MEDICAID ==
[~2020-04-28] VITALS: Ht 165.1 cm; Wt 68.6 kg
[2020-04-28] MEDS ORDERED: albumin 25% 100mL bottle x 1 IV PRN (07:45)
[2020-04-28 07:59] VITALS: BP 109/74
[2020-04-28 08:00] VITALS: BP 109/74
[2020-04-28 09:10] VITALS: BP 109/74
[2020-04-28 09:30] VITALS: BP 102/61
[2020-04-28 09:45] VITALS: BP 109/68
[2020-04-28 10:00] VITALS: BP 104/66
== END 2020-04-28 10:25 | disposition home or self-care (01) ==
LOC: SSTAY O 07:28
PROVIDERS: ATTEND Radiology Diagnostic Radiology
DX: J90 Pleural effusion, not elsewhere classified (principal); K70.31 Alcoholic cirrhosis of liver with ascites; R14.0 Abdominal distension (gaseous); E80.6 Other disorders of bilirubin metabolism; E87.1 Hypo-osmolality and hyponatremia; E78.5 Hyperlipidemia, unspecified; D64.9 Anemia, unspecified; Z98.890 Other specified postprocedural states; Z90.710 Acquired absence of both cervix and uterus; Z79.899 Other long term (current) drug therapy; Z82.49 Family history of ischemic heart disease and other diseases of the circulatory system
CPT/HCPCS: 32555; 49083; 71045; 76705

== ENCOUNTER 2020-05-04 07:28 | Day surgery (SDC) | payer MEDICARE, MEDICAID ==
[~2020-05-04] VITALS: Ht 166.4 cm; Wt 67.4 kg
[2020-05-04] MEDS ORDERED: albumin 25% 100mL bottle x 1 IV PRN (08:15)
[2020-05-04 08:30] VITALS: BP 108/68
[2020-05-04 09:10] VITALS: BP 108/68
[2020-05-04 09:25] VITALS: BP 94/65
[2020-05-04 09:45] VITALS: BP 95/46
[2020-05-04 10:00] VITALS: BP 97/65
[2020-05-04 10:14] VITALS: BP 106/68
== END 2020-05-04 10:25 | disposition home or self-care (01) ==
LOC: SSTAY O 07:28
PROVIDERS: ATTEND Radiology Vascular & Interventional Radiology
DX: J90 Pleural effusion, not elsewhere classified (principal); K70.31 Alcoholic cirrhosis of liver with ascites; R14.0 Abdominal distension (gaseous); E80.6 Other disorders of bilirubin metabolism; E78.5 Hyperlipidemia, unspecified; E87.1 Hypo-osmolality and hyponatremia; D64.9 Anemia, unspecified; Z98.890 Other specified postprocedural states; Z90.710 Acquired absence of both cervix and uterus; Z87.19 Personal history of other diseases of the digestive system; Z79.899 Other long term (current) drug therapy; Z82.49 Family history of ischemic heart disease and other diseases of the circulatory system
CPT/HCPCS: 32555; 71045; 76705

== ENCOUNTER 2020-05-11 07:27 | Day surgery (SDC) | payer MEDICARE, MEDICAID ==
[~2020-05-11] VITALS: Ht 165.1 cm; Wt 68.4 kg
[~2020-05-11 07:27] MED LIST changes: -HYDR-4383 PO
[2020-05-11] MEDS ORDERED: albumin 25% 100mL bottle x 1 IV PRN (07:50)
[2020-05-11 08:00] VITALS: BP 123/95
[2020-05-11 08:13] VITALS: BP 119/65
[2020-05-11 08:28] VITALS: BP 134/67
[2020-05-11 08:45] VITALS: BP 106/67
[2020-05-11 09:00] VITALS: BP 123/64
[2020-05-11 09:20] VITALS: BP 94/68
== END 2020-05-11 09:35 | disposition home or self-care (01) ==
LOC: SSTAY O 07:27
PROVIDERS: ATTEND Radiology Diagnostic Radiology
DX: K70.31 Alcoholic cirrhosis of liver with ascites (principal); J90 Pleural effusion, not elsewhere classified; R14.0 Abdominal distension (gaseous); E80.6 Other disorders of bilirubin metabolism; E78.5 Hyperlipidemia, unspecified; E87.1 Hypo-osmolality and hyponatremia; D64.9 Anemia, unspecified; Z98.890 Other specified postprocedural states; Z90.710 Acquired absence of both cervix and uterus; Z79.899 Other long term (current) drug therapy; Z82.49 Family history of ischemic heart disease and other diseases of the circulatory system
CPT/HCPCS: 32555; 71045; 76604; 76705

== ENCOUNTER 2020-05-19 07:35 | Day surgery (SDC) | payer MEDICARE, MEDICAID ==
[~2020-05-19] VITALS: Ht 165.1 cm; Wt 69.4 kg
[2020-05-19] VITALS (7 sets, daily range): BP systolic 99–112; BP diastolic 65–78
[2020-05-19] MEDS ORDERED: albumin 25% 100mL bottle x 1 IV PRN (08:00)
== END 2020-05-19 11:15 | disposition home or self-care (01) ==
LOC: SSTAY O 07:35
PROVIDERS: ATTEND Radiology Diagnostic Radiology
DX: J90 Pleural effusion, not elsewhere classified (principal); K70.31 Alcoholic cirrhosis of liver with ascites; E80.6 Other disorders of bilirubin metabolism; E78.5 Hyperlipidemia, unspecified; D64.9 Anemia, unspecified; E87.1 Hypo-osmolality and hyponatremia; Z90.710 Acquired absence of both cervix and uterus; Z98.890 Other specified postprocedural states; Z79.899 Other long term (current) drug therapy; Z82.49 Family history of ischemic heart disease and other diseases of the circulatory system
CPT/HCPCS: 32555; 49083; 71045; P9047

== ENCOUNTER 2020-05-25 07:29 | Day surgery (SDC) | payer MEDICARE, MEDICAID ==
[~2020-05-25] VITALS: Ht 165.1 cm; Wt 67.4 kg
[2020-05-25] VITALS (9 sets, daily range): BP systolic 91–136; BP diastolic 57–82
[2020-05-25] MEDS ORDERED: albumin 25% 100mL bottle x 1 IV PRN (07:55)
== END 2020-05-25 11:55 | disposition home or self-care (01) ==
LOC: SSTAY O 07:29
PROVIDERS: ATTEND Radiology Vascular & Interventional Radiology
DX: J90 Pleural effusion, not elsewhere classified (principal); K70.31 Alcoholic cirrhosis of liver with ascites; E78.5 Hyperlipidemia, unspecified; E87.1 Hypo-osmolality and hyponatremia; D64.9 Anemia, unspecified; E80.6 Other disorders of bilirubin metabolism; Z98.890 Other specified postprocedural states; Z90.710 Acquired absence of both cervix and uterus; Z79.899 Other long term (current) drug therapy; Z82.49 Family history of ischemic heart disease and other diseases of the circulatory system
CPT/HCPCS: 32555; 49083; 71045; 76937; P9047

== ENCOUNTER 2020-06-01 08:17 | Day surgery (SDC) | payer MEDICARE, MEDICAID ==
[2020-06-01] VITALS (11 sets, daily range): BP systolic 89–112; BP diastolic 39–69
[~2020-06-01] VITALS: Ht 165.1 cm; Wt 66.6 kg
[2020-06-01] MEDS ORDERED: albumin 25% 100mL bottle x 1 IV PRN (08:45)
== END 2020-06-01 11:30 | disposition home or self-care (01) ==
LOC: SSTAY O 08:17
PROVIDERS: ATTEND Radiology Vascular & Interventional Radiology
DX: J90 Pleural effusion, not elsewhere classified (principal); K70.31 Alcoholic cirrhosis of liver with ascites; E80.6 Other disorders of bilirubin metabolism; E78.5 Hyperlipidemia, unspecified; E87.1 Hypo-osmolality and hyponatremia; D64.9 Anemia, unspecified; Z90.710 Acquired absence of both cervix and uterus; Z98.890 Other specified postprocedural states; Z79.899 Other long term (current) drug therapy; Z82.49 Family history of ischemic heart disease and other diseases of the circulatory system
CPT/HCPCS: 32555; 49083; 71045; P9047

== ENCOUNTER 2020-06-08 07:37 | Day surgery (SDC) | payer MEDICARE, MEDICAID ==
[~2020-06-08] VITALS: Ht 165.1 cm; Wt 67.3 kg
[2020-06-08] MEDS ORDERED: albumin 25% 100mL bottle x 1 IV PRN (08:00)
[2020-06-08 08:14] VITALS: BP 104/53
[2020-06-08 08:51] VITALS: BP 102/72
[2020-06-08 09:51] VITALS: BP 91/66
[2020-06-08 10:00] VITALS: BP 107/66
== END 2020-06-08 10:10 | disposition home or self-care (01) ==
LOC: SSTAY O 07:37
PROVIDERS: ATTEND Radiology Vascular & Interventional Radiology
DX: J90 Pleural effusion, not elsewhere classified (principal); K70.31 Alcoholic cirrhosis of liver with ascites; E78.5 Hyperlipidemia, unspecified; D64.9 Anemia, unspecified; Z98.890 Other specified postprocedural states; Z90.710 Acquired absence of both cervix and uterus; Z79.899 Other long term (current) drug therapy
CPT/HCPCS: 32555; 49083; 71045

== ENCOUNTER 2020-06-15 08:14 | Day surgery (SDC) | payer MEDICARE, MEDICAID ==
[~2020-06-15] VITALS: Ht 165.1 cm; Wt 69.7 kg
[2020-06-15 08:30] VITALS: BP 114/67
[2020-06-15] MEDS ORDERED: albumin 25% 100mL bottle x 1 IV PRN (08:40)
[2020-06-15 09:15] VITALS: BP 114/74
[2020-06-15 09:30] VITALS: BP 112/78
[2020-06-15 09:45] VITALS: BP 116/88
[2020-06-15 10:00] VITALS: BP 111/84
[2020-06-15 10:30] VITALS: BP 114/78
== END 2020-06-15 11:15 | disposition home or self-care (01) ==
LOC: SSTAY O 08:14
PROVIDERS: ATTEND Radiology Diagnostic Radiology
DX: K70.31 Alcoholic cirrhosis of liver with ascites (principal); J90 Pleural effusion, not elsewhere classified; E80.6 Other disorders of bilirubin metabolism; E78.5 Hyperlipidemia, unspecified; E87.1 Hypo-osmolality and hyponatremia; D64.9 Anemia, unspecified; Z87.19 Personal history of other diseases of the digestive system; Z98.890 Other specified postprocedural states; Z90.710 Acquired absence of both cervix and uterus; Z79.899 Other long term (current) drug therapy; Z82.49 Family history of ischemic heart disease and other diseases of the circulatory system
CPT/HCPCS: 49083; 76604; P9047

== ENCOUNTER 2020-06-21 09:59 | Emergency (ER) | payer MEDICARE, MEDICAID ==
[~2020-06-21] VITALS: Ht 165.1 cm; Wt 68.2 kg
[2020-06-21 10:52] LABS: BASOPHILS % (AUTO) 0.2 % (0-1); EOSINOPHILS % (AUTO) 0.1 % (0-6); HEMATOCRIT 33.9 % (35.0-45.0); HEMOGLOBIN 11.2 g/dl (12.0-16.0); LYMPHOCYTES # (AUTO) 0.3 X10'3 (1.1-4.8); LYMPHOCYTES % (AUTO) 4.3 % (21-51); MEAN CORPUSCULAR HEMOGLOBIN 27.5 PG (27.0-31.0); MEAN CORPUSCULAR HGB CONC 32.9 g/dL (33.0-36.5); MEAN CORPUSCULAR VOLUME 83.5 FL (78-98); MEAN PLATELET VOLUME 6.5 FL (7.4-10.4); MONOCYTES # (AUTO) 1.1 X10'3 (0-0.9); MONOCYTES % (AUTO) 16.1 % (2-12); NEUTROPHILS # (AUTO) 5.5 X10'3 (1.8-7.7); NEUTROPHILS % (AUTO) 79.3 % (42-75); PLATELET COUNT 217 X10'3 (140-440); RED BLOOD COUNT 4.06 X10'6 (4.20-5.60); RED CELL DISTRIBUTION WIDTH 17.3 % (11.5-14.5)
[2020-06-21 11:01] LABS: ALANINE AMINOTRANSFERASE 65 U/L (12-78); ALBUMIN 2.6 G/DL (3.4-5.0); ALBUMIN/GLOBULIN RATIO 0.7 (1.1-1.5); ALKALINE PHOSPHATASE 272 IU/L (46-116); ANION GAP 9 (8-16); ASPARTATE AMINO TRANSFERASE 31 U/L (10-37); BILIRUBIN,TOTAL 1.6 MG/DL (0.1-1.0); BLOOD UREA NITROGEN 26 MG/DL (7-18); BUN/CREATININE RATIO 27.4 (6.6-38.0); CALCIUM 9.1 MG/DL (8.5-10.1); CHLORIDE 90 MMOL/L (99-107); CREATININE 0.95 MG/DL (0.40-0.90); GLUCOSE 125 MG/DL (70-104); POTASSIUM 4.9 MMOL/L (3.5-5.1); SODIUM 121 MMOL/L (135-145); TOTAL CARBON DIOXIDE 22.2 MMOL/L (24-32); TOTAL PROTEIN 6.3 G/DL (6.4-8.2); eGFR 59 ML/MIN
--- NOTE | 2020-06-21 11:34 | NUR ---
PARACENTESIS PERFORMED PER DR. BULLOCK. OUTPUT OF 1.25 L OF YELLOW FLUID. SPECIMEN SENT TO LAB.
[2020-06-21 12:06] LABS: CLARITY,URINE CLOUDY (Clear); COLOR,URINE YELLOW (Yellow); GLUCOSE, URINE NEGATIVE (Neg); KETONES,URINE NEGATIVE (Neg); LEUKOCYTE ESTERASE ,URINE MODERATE (Neg); NITRITES, URINE NEGATIVE (Neg); OCCULT BLOOD,URINE MODERATE (Neg); PROTEIN,URINE TRACE mg/dl (Neg); UROBILINOGEN,URINE 0.2 E.U/dL (0.2-1.0)
[2020-06-21 12:07] LABS: UA COLLECTION TYPE STRAIGHT CATH
[2020-06-21 12:22] LABS: SQUAMOUS EPITHELIAL CELL,UR NONE SEEN /LPF (FEW); WBC,URINE TNTC /HPF (0-4)
[2020-06-21 12:23] LABS: RBC,URINE 20-50 /HPF (0-2)
[2020-06-21 12:24] LABS: BACTERIA,URINE 4+ /HPF (Neg); WBC CLUMPS,URINE MANY /HPF (NEGATIVE)
[2020-06-21] MEDS ORDERED: CefTRIAXone/D5W-Rocephin 1gm 50 ML IV ONE (12:35)
[2020-06-21 13:52] LABS: BF RBC COUNT 27 /CU MM; BF WBC COUNT 51 /CU MM (0-1000); BFAPPEAR CLEAR; BFCOLOR YELLOW; BFVOLUME 62 ML
--- NOTE | 2020-06-21 14:17 | NUR ---
Pt. Ok'd staff to talk to her significant other, Harvinder Boyer, about her care here.
[2020-06-21] MEDS: lactulose 20gm/30ml cup PO SCH ×2 (14:26→21:00)
[2020-06-21 14:36] LABS: LYMPHOCYTES,BODY FLUID 75 %; MONOCYTES,BODY FLUID 11 %; NEUTROPHILS,BODY FLUID 14 %
[2020-06-21 17:27] LABS: ALBUMIN 2.4 G/DL (3.4-5.0); ANION GAP 6 (8-16); BLOOD UREA NITROGEN 24 MG/DL (7-18); BUN/CREATININE RATIO 28.6 (6.6-38.0); CALCIUM 9.1 MG/DL (8.5-10.1); CHLORIDE 93 MMOL/L (99-107); CREATININE 0.84 MG/DL (0.40-0.90); GLUCOSE 99 MG/DL (70-104); POTASSIUM 4.4 MMOL/L (3.5-5.1); SODIUM 124 MMOL/L (135-145); eGFR 68 ML/MIN
--- NOTE | 2020-06-22 03:04 | NUR ---
Pt in hospital bed waiting for transfer. Pt was incontinent of stool after adminstration of lactulose. Night time dose of lactulose non admined for excessive loose stool. Pt A/O X 4, pleasant and cooperative.
--- NOTE | 2020-06-22 06:40 | NUR ---
PT IS AWAKE AND ALERT, TALKING ON HER PHONE. AWAITING TRANSFER TO [facility].
[2020-06-22] MEDS: lactulose 20gm/30ml cup PO SCH (08:00)
[2020-06-22] MEDS ORDERED: CefTRIAXone/D5W-Rocephin 1gm 50 ML IV SCH (08:00)
[2020-06-22 08:30] LABS: ALANINE AMINOTRANSFERASE 60 U/L (12-78); ALBUMIN 2.3 G/DL (3.4-5.0); ALBUMIN/GLOBULIN RATIO 0.7 (1.1-1.5); ALKALINE PHOSPHATASE 241 IU/L (46-116); ANION GAP 7 (8-16); ASPARTATE AMINO TRANSFERASE 30 U/L (10-37); BASOPHILS % (AUTO) 0.4 % (0-1); BILIRUBIN,TOTAL 1.3 MG/DL (0.1-1.0); BLOOD UREA NITROGEN 22 MG/DL (7-18); BUN/CREATININE RATIO 27.2 (6.6-38.0); CALCIUM 8.8 MG/DL (8.5-10.1); CHLORIDE 94 MMOL/L (99-107); CREATININE 0.81 MG/DL (0.40-0.90); EOSINOPHILS % (AUTO) 0.9 % (0-6); GLUCOSE 132 MG/DL (70-104); HEMATOCRIT 32.3 % (35.0-45.0); HEMOGLOBIN 10.6 g/dl (12.0-16.0); LYMPHOCYTES # (AUTO) 0.4 X10'3 (1.1-4.8); LYMPHOCYTES % (AUTO) 6.8 % (21-51); MEAN CORPUSCULAR HEMOGLOBIN 27.4 PG (27.0-31.0); MEAN CORPUSCULAR HGB CONC 32.8 g/dL (33.0-36.5); MEAN CORPUSCULAR VOLUME 83.6 FL (78-98); MEAN PLATELET VOLUME 6.5 FL (7.4-10.4); MONOCYTES # (AUTO) 0.8 X10'3 (0-0.9); MONOCYTES % (AUTO) 15.3 % (2-12); NEUTROPHILS # (AUTO) 4.2 X10'3 (1.8-7.7); NEUTROPHILS % (AUTO) 76.6 % (42-75); PLATELET COUNT 186 X10'3 (140-440); POTASSIUM 4.1 MMOL/L (3.5-5.1); RED BLOOD COUNT 3.87 X10'6 (4.20-5.60); RED CELL DISTRIBUTION WIDTH 17.1 % (11.5-14.5); SODIUM 124 MMOL/L (135-145); TOTAL CARBON DIOXIDE 22.6 MMOL/L (24-32); TOTAL PROTEIN 5.8 G/DL (6.4-8.2); WHITE BLOOD COUNT 5.5 X10'3 (4.5-11.0); eGFR 71 ML/MIN
--- NOTE | 2020-06-22 10:21 | NUR ---
PT'S IS TO VISIT
[2020-06-22 16:25] VITALS: BP 116/64
== END 2020-06-22 16:28 | disposition short-term general hospital (02) ==
LOC: ER 09:59
DX: K72.90 Hepatic failure, unspecified without coma (principal); Z20.822 Contact with and (suspected) exposure to COVID-19; N39.0 Urinary tract infection, site not specified; E87.1 Hypo-osmolality and hyponatremia; R14.0 Abdominal distension (gaseous); Z98.890 Other specified postprocedural states; Z79.899 Other long term (current) drug therapy
CPT/HCPCS: 36415; 49083; 70450; 80048; 80053; 81001; 82140; 85025; 85610; 87070; 87077; 87088; 87186; 87635; 89051; 96365; 96366; 99285; C9803; J0696

== ENCOUNTER 2020-08-27 09:40 | Day surgery (SDC) | payer MEDICARE, MEDICAID ==
[~2020-08-27] VITALS: Ht 165.1 cm; Wt 60.7 kg
[~2020-08-27 09:40] MED LIST changes: -FERR-116 PO; -MULT-1074 PO; -POTA20TA19 PO; -SPIR50TA5 PO
[2020-08-27 10:03] VITALS: BP 130/62
[2020-08-27 10:10] VITALS: BP 130/62
== END 2020-08-27 10:30 | disposition home or self-care (01) ==
LOC: SSTAY O 09:40
PROVIDERS: ATTEND Radiology Vascular & Interventional Radiology
DX: J90 Pleural effusion, not elsewhere classified (principal); Z53.8 Procedure and treatment not carried out for other reasons; K70.30 Alcoholic cirrhosis of liver without ascites; E78.5 Hyperlipidemia, unspecified; E80.6 Other disorders of bilirubin metabolism; E87.1 Hypo-osmolality and hyponatremia; D64.9 Anemia, unspecified; Z90.49 Acquired absence of other specified parts of digestive tract; Z98.890 Other specified postprocedural states; Z90.710 Acquired absence of both cervix and uterus; Z79.899 Other long term (current) drug therapy; Z82.49 Family history of ischemic heart disease and other diseases of the circulatory system
CPT/HCPCS: 76604

== ENCOUNTER 2020-08-29 14:09 | Emergency (ER) | payer MEDICARE, MEDICAID ==
[~2020-08-29] VITALS: Ht 157.5 cm; Wt 66.0 kg
[2020-08-29] MEDS ORDERED: normal saline 1000ML IV soln IVB ONE ×3 (14:20→17:45)
[2020-08-29 14:43] LABS: BASOPHILS % (AUTO) 0.5 % (0-1); EOSINOPHILS # (AUTO) 0.1 X10'3 (0-0.9); EOSINOPHILS % (AUTO) 1.9 % (0-6); HEMATOCRIT 29.4 % (35.0-45.0); LYMPHOCYTES # (AUTO) 0.5 X10'3 (1.1-4.8); LYMPHOCYTES % (AUTO) 12.3 % (21-51); MEAN CORPUSCULAR HEMOGLOBIN 32.6 PG (27.0-31.0); MEAN CORPUSCULAR VOLUME 95.9 FL (78-98); MEAN PLATELET VOLUME 6.1 FL (7.4-10.4); MONOCYTES # (AUTO) 0.7 X10'3 (0-0.9); MONOCYTES % (AUTO) 18.2 % (2-12); NEUTROPHILS # (AUTO) 2.5 X10'3 (1.8-7.7); NEUTROPHILS % (AUTO) 67.1 % (42-75); PLATELET COUNT 181 X10'3 (140-440); RED BLOOD COUNT 3.07 X10'6 (4.20-5.60); RED CELL DISTRIBUTION WIDTH 19.8 % (11.5-14.5); WHITE BLOOD COUNT 3.7 X10'3 (4.5-11.0)
[2020-08-29 14:52] LABS: ALANINE AMINOTRANSFERASE 63 U/L (12-78); ALBUMIN/GLOBULIN RATIO 0.8 (1.1-1.5); ALKALINE PHOSPHATASE 695 IU/L (46-116); ANION GAP 5 (8-16); ASPARTATE AMINO TRANSFERASE 28 U/L (10-37); BILIRUBIN,TOTAL 3.5 MG/DL (0.1-1.0); BLOOD UREA NITROGEN 19 MG/DL (7-18); CALCIUM 9.1 MG/DL (8.5-10.1); CHLORIDE 102 MMOL/L (99-107); CREATININE 0.73 MG/DL (0.40-0.90); GLUCOSE 110 MG/DL (70-104); POTASSIUM 4.5 MMOL/L (3.5-5.1); SODIUM 133 MMOL/L (135-145); TOTAL CARBON DIOXIDE 26.2 MMOL/L (24-32); TOTAL PROTEIN 6.9 G/DL (6.4-8.2); eGFR 80 ML/MIN
[2020-08-29 14:54] LABS: ETHANOL < 0.010 GM/DL (0.0-0.010); TROPONIN I < 0.04 NG/ML (0.0-0.05)
[2020-08-29 14:54] LABS: CLARITY,URINE CLEAR (Clear); COLOR,URINE YELLOW (Yellow); GLUCOSE, URINE NEGATIVE (Neg); KETONES,URINE NEGATIVE (Neg); LEUKOCYTE ESTERASE ,URINE TRACE (Neg); NITRITES, URINE NEGATIVE (Neg); OCCULT BLOOD,URINE TRACE-LYSED (Neg); PROTEIN,URINE NEGATIVE (Neg); UROBILINOGEN,URINE 0.2 E.U/dL (0.2-1.0)
[2020-08-29 14:55] LABS: UA COLLECTION TYPE STRAIGHT CATH
[2020-08-29] MEDS ORDERED: lactulose 20gm/30ml cup PO ONE (15:00)
[2020-08-29 15:02] LABS: BACTERIA,URINE NONE SEEN /HPF (Neg); MUCUS STRANDS NONE SEEN /LPF (Neg); RBC,URINE 0-2 /HPF (0-2); SQUAMOUS EPITHELIAL CELL,UR NONE SEEN /LPF (FEW); WBC,URINE 0-4 /HPF (0-4)
[2020-08-29 15:05] LABS: URINE AMPHETAMINE SCREEN NEGATIVE (Neg); URINE BARBITUATE SCREEN NEGATIVE (Neg); URINE BENZODIAZEPINES SCREEN NEGATIVE (Neg); URINE CANNABINOID SCREEN NEGATIVE (Neg); URINE COCAINE SCREEN NEGATIVE (Neg); URINE METHADONE SCREEN NEGATIVE (Neg); URINE OPIATE SCREEN NEGATIVE (Neg); URINE PHENCYCLIDINE SCREEN NEGATIVE (Neg)
[2020-08-29] MEDS ORDERED: normal saline 1000ml 1,000 ML IV STA (17:47)
[2020-08-29 18:29] VITALS: BP 133/67
== END 2020-08-30 05:28 | disposition home or self-care (01) ==
LOC: ER 14:10
DX: K72.90 Hepatic failure, unspecified without coma (principal); Z98.890 Other specified postprocedural states; Z79.899 Other long term (current) drug therapy
CPT/HCPCS: 36415; 71045; 80053; 80305; 80320; 81001; 82140; 82948; 84484; 85025; 87088; 93005; 96360; 99285; J7030

== ENCOUNTER 2020-10-08 08:55 | Emergency (ER) | payer MEDICARE, MEDICAID ==
[~2020-10-08] VITALS: Ht 165.1 cm; Wt 68.2 kg
[2020-10-08] MEDS ORDERED: ONDA4TAB6 PO (09:47)
[2020-10-08] MEDS ORDERED: HYDR-3965 PO (09:47)
[2020-10-08 09:52] VITALS: BP 116/55
== END 2020-10-08 10:03 | disposition home or self-care (01) ==
LOC: ER 08:56
DX: S22.050A Wedge compression fracture of T5-T6 vertebra, initial encounter for closed fracture (principal); M54.6 Pain in thoracic spine; Z98.890 Other specified postprocedural states; Z79.899 Other long term (current) drug therapy; X58.XXXA Exposure to other specified factors, initial encounter; Y93.89 Activity, other specified; Y92.89 Other specified places as the place of occurrence of the external cause; Y99.8 Other external cause status
CPT/HCPCS: 99283

== ENCOUNTER 2021-02-24 10:06 | Emergency (ER) | payer MEDICARE, MEDICAID ==
[~2021-02-24] VITALS: Ht 165.1 cm; Wt 72.7 kg
[~2021-02-24 10:06] MED LIST changes: +ONDA4TAB6 PO
[2021-02-24] MEDS ORDERED: LIDOcaine 5% patch TP STA (10:21)
[2021-02-24] MEDS ORDERED: oxyCODONE/APAP 10/325mg tablet PO ONE (10:25)
[2021-02-24] MEDS ORDERED: orphenadrine citrate 60mg/2ml inj. IM ONE (10:25)
[2021-02-24 10:26] VITALS: BP 111/57
[2021-02-24] MEDS ORDERED: CYCL-1 PO (11:05)
[2021-02-24] MEDS ORDERED: OXYC-145 PO (11:05)
== END 2021-02-24 11:38 | disposition home or self-care (01) ==
LOC: ER 10:07
DX: M54.50 Low back pain, unspecified (principal); G89.29 Other chronic pain; R53.1 Weakness; Z98.890 Other specified postprocedural states; Z79.899 Other long term (current) drug therapy
CPT/HCPCS: 96372; 99283; J2360

== ENCOUNTER 2024-12-21 09:37 | Emergency (ER) | payer MEDICARE ==
[~2024-12-21] VITALS: Ht 162.6 cm; Wt 77.6 kg
[~2024-12-21 09:37] MED LIST changes: +CYCL-1 PO; +OXYC-145 PO
[2024-12-21 09:47] VITALS: BP 132/39; PULSE 83; RESP 18; TEMP 97.3; O2SAT 95
[2024-12-21] MEDS ORDERED: OXYC10TA47 PO (10:57)
[2024-12-21] MEDS ORDERED: AMOX-117 PO (10:57)
--- NOTE | 2024-12-21 10:58 | Physician Documentation ---
HPI ~ General Chief Complaint: Medication Request Stated Complaint: MED REQUEST Time Seen by MD: 09:55 OK to notify your PCP?: Yes Primary Medical Doctor: Dr Canchola Source: patient Mode of Arrival: POV Exam Limitations: no limitations History of Present Illness HPI Comment 69-year-old female presents for mouth pain. She had dental implant surgery in [place] a couple of days ago and was given oxycodone 10 mg. She states that she is only given a 3 day supply in his now run out. She called the dentist office and tried to have them send over a prescription but because they are out of state they are unable to do so. She has some sutures to the upper and lower jaw and she reports touched a few of them have fallen out from the lower jaw. She has excessive bruising to her face. Medication Reconciliation Allergies: Coded Allergies: No Known Allergies (Unverified , 12/21/24) Scheduled Amox Tr/Potassium Clavulanate (Augmentin 875-125 Tablet), 1 TAB PO Q12H Cyclobenzaprine* (Cyclobenzaprine*), 1 TAB PO Q8H Furosemide (Furosemide), 2 TAB PO DAILY, (Reported) Ondansetron Hcl (Zofran), 1 TAB PO Q6H Pantoprazole Sodium (PROTONIX tablet), 1 TAB PO DAILY, (Reported) Scheduled PRN Oxycodone HCl/Acetaminophen (Percocet 5-325 mg Tablet), 1 TAB PO TID PRN PRN for pain Oxycodone Hcl (Oxycodone Hcl), 1 TAB PO QID PRN PRN for pain Past Medical History Past Medical History: Liver Failure, Liver Disease Past Surgical History: abdominal surgery Other Past Surgical History: TIPS procedure Patient History: Cardiac disorder in father FATHER, , Age: 80, Cause: Heart problem Father Patient's father is FATHER, , Age: 80, Cause: Heart problem Alcohol Use: None Drug Use: none Lives with: Spouse Lives In: Home Review of Systems All Other Systems at this time: Reviewed and Negative Physical Exam Vital Signs: RN Vital Signs have been reviewed: Yes, Temperature: 97.3, Source: Temporal, Heart Rate: 83, Respiratory Rate: 18, BP: 132/39, Pulse Oximetry: 95, Weight: 77.600 Oxygen Flow Rate: 0 Pulse Oximetry Reflects: adequate oxygenation Physical Exam General: Alert, no distress. HEENT: No injection, moist mucous membranes. Excessive bruising around only worked lips and mouth with swelling. Multiple sutures to upper and lower jaw. Upper jaw sutures appear infected with redness and drainage. Neck: Full range of motion. Respiratory: No respiratory distress, equal chest rise and fall. Chest: No accessory muscle use. Cardiovascular: Regular rate and rhythm. Gastrointestinal: Nondistended. Extremities: Normal range of motion, no deformity. Neurologic: Oriented x4. Psychiatric: Normal mood and affect. Skin: Normal color, warm and dry. Progress Results/Orders Reviewed/noted all lab results: Yes Results/Orders Vital Signs 12/21/24 09:47 Temp 97.3 Pulse 83 Resp 18 B/P (MAP) 132/39 Pulse Ox 95 O2 Flow Rate 0 Medical Decision Making Additional information obtaine: old records Findings Requesting pain medication as she has ran out and her provider is out of state. Reports a few of her sutures have we will already came out and she does appear to have an infection in the upper jaw. I have placed her on Augmentin as well as given her a prescription of oxycodone 10mg. She was follow up instructions as well as aftercare instructions. Differential Dx:Considerations: Include: Alveolar fracture, Facial Cellulitis, Periapical abscess, Peridontal abscess, Post-extraction bleeding, Pulpitis, Tooth avulsion, Tooth eruption, Tooth Fracture, Trigeminal neuralgia Departure Disposition: HOME / SELF CARE / HOMELESS Impression: Primary Impression: Pain Additional Impression: Post-operative infection Discharge Instructions: Medicine Refill at the Emergency Department Additional Instructions: Continue to follow up with her specialist as planned. You have been placed on Augmentin for the infection to the upper jaw. Please take all antibiotics as prescribed and finish the course. Referrals: NO PRIMARY CARE PROVIDER (PCP) Prescriptions Amox Tr/Potassium Clavulanate (Augmentin 875-125 Tablet) 1 Each Tablet 1 TAB PO Q12H for 10 Days, #20 TAB Prov: PATTIE EMANUEL NAIL STICKER 12/21/24 Oxycodone Hcl (Oxycodone Hcl) 10 Mg Tablet 1 TAB PO QID PRN PRN for pain for 5 Days, #20 TAB Prov: PATTIE EMANUEL NAIL STICKER 12/21/24 Education Educated: Patient Educated regarding: diagnosis, treatment, prognosis, need for follow up Additional Comment Medical Screen Exam This patient recieved a medical screening examination. After reviewing the individual's medical complaints with presenting symptoms and performing an appropriate physical examination, it was determined that no immediate life- threatening emergency medical condition is present. This individual is also not a women having contractions. Signature Scribe Signature: . Attestation: Scribed for Pattie Emanuelp by Pattie Khan NP . 12/21/24 17:42 Parts of this note were created using [employer] voice recognition software program. While efforts were made to correct any mistakes made by this voice recognition software program, nonsensical phrases may remain in this note. In addition, there may be errors and syntax, grammar, content and spelling. PATTIE EMANUEL NAIL STICKER Dec 21, 2024 10:58
== END 2024-12-21 11:10 | disposition home or self-care (01) ==
LOC: ER 09:38
DX: S00.83XA Contusion of other part of head, initial encounter (principal); K13.79 Other lesions of oral mucosa; T81.40XA Infection following a procedure, unspecified, initial encounter; Z79.899 Other long term (current) drug therapy; W18.30XA Fall on same level, unspecified, initial encounter; Y93.89 Activity, other specified; Y92.89 Other specified places as the place of occurrence of the external cause; Y99.8 Other external cause status
CPT/HCPCS: 99283